=== PATIENT | female | born 1990 | race Caucasian/White ===

== ENCOUNTER 2020-09-11 17:38 | Emergency (ER) | payer OTHER, SELFPAY ==
--- NOTE | 2020-09-11 17:56 | ED.URI ---
HPI - URI/Sore Throat General Chief Complaint: Upper Respiratory Infection Stated Complaint: Ear Pain,UTI Time Seen by Provider: 09/11/20 17:56 Source: patient and RN notes reviewed Mode of arrival: ambulatory Limitations: no limitations History of Present Illness HPI Narrative: 30-year-old female presents to [facility] care with multiple complaints. reports fevers, extreme fatigue, body aches, lower abdominal cramping, urinary symptoms, is of loss of taste and smell.. Not able to eat or drink. History of IV drug use, methamphetamine and fentanyl, last use was this morning Patient also is complaining of urinary frequency urgency with occasional burning and suprapubic cramping that has been intermittent. Would like to be tested for UTI. Denies STD or Related Data Allergies Allergy/AdvReac Type Severity Reaction Status Date / Time sulfamethoxazole Allergy Unknown Difficulty Verified 09/11/20 18:14 Breathing trimethoprim Allergy Unknown Difficulty Verified 09/11/20 18:14 Breathing Review of Systems Review of Systems: Narrative: CONSTITUTIONAL: Reports fever, chills, or sweats. EYES: Denies visual changes, redness, or discharge. ENT: Reports rhinorrhea, congestion, sore throat, or otalgia. CARDIOVASCULAR: Denies chest pain, palpitations, or edema. RESPIRATORY: Reports cough, denies dyspnea. GASTROINTESTINAL: Denies abdominal pain, nausea, vomiting, or diarrhea. GENITOURINARY: Reports dysuria, denies hematuria. SKIN: Denies rash or itching. MUSCULOSKELETAL: Denies back pain, joint pain, or myalgia. NEUROLOGIC: Reports headache, numbness, or weakness. PSYCHIATRIC: Denies anxiety or depression. All other systems reviewed are negative, except as documented in HPI. [facility] Social History Social History (Updated 09/12/20 @ 14:09 by Qian Wren) Substance use: current Substance use type: amphetamines, opiates, IV drugs and methamphetamine Last use: 09/11/20 Comments At the time of my signature, I reviewed and agree with the nursing past medical, surgical, social, and family history. There is no relevant family history pertinent to the patient complaint. Exam Narrative: Exam Narrative: GENERAL: This is a well-developed patient. Appears acutely ill, thin in appearance. HEAD: normocephalic, atraumatic. EYES: PERRL. Sclera clear/white. Vision is grossly intact. EARS: External ears normal, auditory canals clear and without drainage, TMs normal without perforation. Hearing grossly intact. NOSE: External nose normal. Thick white nasal discharge, nares with redness, + rhinorrhea. THROAT: Mucous membranes moist, posterior pharynx clear. NECK: Neck supple, non-tender without lymphadenopathy, masses or thyromegaly. CARDIOVASCULAR: Tachycardic with regular rhythm without murmurs, gallops, or rubs. RESPIRATORY: Clear to auscultation. Breath sounds equal bilaterally. No wheezes, rales, or rhonchi. GASTROINTESTINAL: Abdomen soft, non-tender, nondistended. SKIN: warm, intact with no suspicious lesions or rash, good texture and turgor. NEURO: awake, alert, and oriented to person, place and time. There were no obvious focal neurologic abnormalities. EXTREMITIES: No clubbing, cyanosis, or edema. No joint tenderness, effusion, or edema noted. BACK: Nontender without deformity or crepitance. No flank tenderness. Course Vital Signs Vital signs: Vital Signs Temperature 96.3 F L 09/11/20 18:05 Pulse Rate 121 H 09/11/20 18:05 Respiratory Rate 18 09/11/20 18:05 Blood Pressure 156/114 H 09/11/20 18:05 Pulse Oximetry 100 09/11/20 18:05 Temperature 96.3 F L 09/11/20 18:05 Pulse Rate 110 H 09/11/20 18:52 Respiratory Rate 16 09/11/20 18:52 Blood Pressure 135/98 H 09/11/20 18:52 Pulse Oximetry 100 09/11/20 18:52 Reviewed. Pulse is elevated, elevated blood pressure. Patient is positive Covid. Discussed signs and symptoms with patient that if she feels worse to go to the emergency room which she verbal
[2020-09-11 18:05] VITALS: BP 156/114; PULSE 121; RESP 18; TEMP 35.7; O2SAT 100
[2020-09-11 18:52] VITALS: BP 135/98; PULSE 110; RESP 16; O2SAT 100
== END 2020-09-11 18:52 | disposition home or self-care (01) ==
PROVIDERS: Emergency Provider Nurse Practitioner
DX: U07.1 COVID-19 (principal); N39.0 Urinary tract infection, site not specified
CPT/HCPCS: 81003; 87086; 87426; 99213; C9803; G0463

== ENCOUNTER 2021-10-21 20:14 | Emergency (ER) | payer OTHER, SELFPAY ==
--- NOTE | ~2021-10-21 | XR_ITS ---
EXAMINATION: [id number] DATE: 10/21/2021 21:00 INDICATION: Right axillary pain post fall TECHNIQUE: PA view of the chest and 3 views of the left ribs and 3 views of the right ribs were obtai brigitte. COMPARISON: Chest radiograph dated 11/29/2016 FINDINGS: Displaced fractures of the anterolateral right fifth-eighth ribs. No left-sided rib fractures. Subtle opacity in the central left lower lung zone on the PA projection without evident correlate on the 2 views of the left ribs suggesting this likely represents glandular breast tissue rather than lung dis ease. No other airspace opacities, pulmonary edema, pleural effusion or pneumothorax. Cardiomediastin al silhouette is normal. Mild lumbar levocurvature. IMPRESSION: 1. Displaced right fifth-eighth rib fractures without pneumothorax. 2. Opacities in the left lower lung zone evident only on the PA projection and favor shadowing breast tissue rather than lung disease, differential for the latter including pneumonia or atelectasis. Reviewed, dictated and finalized at location A. VITIES COUNSELOR IMPRESSION: 1. Displaced right fifth-eighth rib fractures without pneumothorax. 2. Opacities in the left lower lung zone evident only on the PA projection and favor shadowing breast tissue rather than lung disease, differential for the la tter including pneumonia or atelectasis.
[2021-10-21 20:15] VITALS: BP 138/90; PULSE 104; RESP 12; TEMP 37.1; O2SAT 100
[2021-10-21 20:38] VITALS: RESP 20
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
[2021-10-21] MEDS: cefTRIAXone 1 GM VIAL 0.5 GM IM (21:30)
[2021-10-21] MEDS: DOXYCYCLINE HYCLATE 100 MG TABLET PO (21:31)
[2021-10-21] MEDS: LIDOCAINE HCL 1% LOCAL INJ 20 ML VIAL (21:31)
[2021-10-21 22:39] LABS: Add Urine Microscopic? YES; Appearance Urine Clear (Clear); Bacteria Urine Trace /hpf; Bilirubin Urine 1+ (Negative); Blood Urine 2+ (Negative); Color Urine Yellow (Yellow); Glucose Urine UA Negative (Negative); Ketones Urine Negative (Negative); Leukocyte Esterase Ur Negative LEU/UL (Negative); Mucus Urine Rare /lpf; Nitrate Urine Negative (Negative); Protein Urine 2+ mg/dL (Negative); RBC Urine >75 /hpf (0-2); Specific Grav Ur 1.028 (1.001-1.035); Squamous Epithelial Cell Urine Occasional /hpf (Few); WBC Urine 0-3 /hpf
[2021-10-21 23:51] VITALS: BP 140/91; PULSE 100; RESP 18; O2SAT 98
== END 2021-10-21 23:53 | disposition home or self-care (01) ==
PROVIDERS: Emergency Provider Nurse Practitioner Family
DX: S22.41XA Multiple fractures of ribs, right side, initial encounter for closed fracture (principal); W03.XXXA Other fall on same level due to collision with another person, initial encounter
CPT/HCPCS: 71111; 81001; 87491; 87591; 96372; 99284; A9270; J0696

== ENCOUNTER 2022-10-16 14:08 | Emergency (ER) | payer OTHER, SELFPAY ==
[2022-10-16 14:22] VITALS: BP 142/80; PULSE 100; RESP 18; TEMP 36.4; O2SAT 100
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
== END 2022-10-16 15:35 | disposition left against medical advice (07) ==
LOC: ANHED 15:51
DX: N39.0 Urinary tract infection, site not specified (principal)
CPT/HCPCS: 99199

== ENCOUNTER 2022-10-18 10:03 | Emergency (ER) | payer OTHER, SELFPAY ==
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
--- NOTE | ~2022-10-18 | US_ITS ---
EXAMINATION: US OB <=14 wk fetus w TV DATE: 10/18/2022 12:56 INDICATION: Positive test. Vomiting. TECHNIQUE: Real-time transabdominal and transvaginal pelvic ultrasound was performed. COMPARISON: None. FINDINGS: TRANSABDOMINAL ULTRASOUND: The uterus measures 10.2 x 4.9 x 5.1 cm. TRANSVAGINAL ULTRASOUND: The endometrial complex measures 12 mm in thickness. There is no visible int rauterine gestational sac. The right ovary measures 3.6 x 2.1 x 2.8 cm. The left ovary measures 2.1 x 1.9 x 2.9 cm. There is no free fluid in the pelvis. IMPRESSION: 1. No visible intrauterine gestational sac, which may be normal in early . Spontaneous abor tion and ectopic are not excluded. Serial beta hCGs are recommended. Reviewed, dictated and finalized at location A. RNET WEBMASTER IMPRESSION: 1. No visible intrauterine gestational sac, which may be normal in early pregn ayesha. Spontaneous and ectopic are not excluded. Serial beta hCGs are recommended.
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
--- NOTE | ~2022-10-18 | CT_ITS ---
EXAMINATION: CT facial bones wo con DATE: 10/18/2022 10:37 INDICATION: Injury TECHNIQUE: Computed tomography (CT) of the facial bones and maxillofacial region was performed withou t intravenous contrast. Automated exposure control and iterative reconstruction technique were employ ed. Exam dose: 357.51 mGy-cm total exam DLP. COMPARISON: None. FINDINGS: The nasal bones and anterior maxillary spine are intact without fracture. The frontozygomatic sutures, orbital rims and meza, zygomatic arches and maxillary bones are intact. The pterygoid plates are normal. There is leftward bowing of nasal septum. There is sondra bullosa of the right middle nasal turbinate and soft tissue swelling of the nasal turbinates bilaterally. Normal alignment at the temporomandibular joints. No mandible fracture. There is mild left and minimal right maxillary sinus mucoperiosteal thickening and slight focal soft tissue thickening of the ethmoid air cells. The paranasal sinuses and mastoid air cells are otherwise unremarkable. IMPRESSION: No facial fracture is detected Reviewed, dictated and finalized at Location A. Reviewed, dictated and finalized at location L. NER MACHINE TENDER
--- NOTE | ~2022-10-18 | CT_ITS ---
. EXAMINATION: CT brain wo con DATE: 10/18/2022 10:37 INDICATION: Head injury TECHNIQUE: Computed tomography (CT) of the head was performed without intravenous contrast. The mA wa s adjusted according to patient size. Iterative reconstruction technique was employed. Exam dose: 60 5.33 mGy-cm total exam DLP. COMPARISON: None FINDINGS: No intracranial mass lesion or hemorrhage or cerebrovascular accident. No midline shift or mass effect. Normal jones-white matter differentiation. Normal ventricular size. No subdural or epidur al hematoma. Orbital contents are unremarkable. Minimal focal soft tissue thickening in the anterior ethmoid air cells, left greater than right. The paranasal sinuses and mastoid air cells are otherwise unremarkable. No fracture or bone destruction of the cranial vault. IMPRESSION: No skull fracture or significant intracranial abnormality Reviewed, dictated and finalized at Location [facility]. Reviewed, dictated and finalized at location L. LITY MECHANIC
[2022-10-18 10:09] VITALS: BP 140/92; PULSE 124; RESP 16; TEMP 36.7; O2SAT 100
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
--- NOTE | 2022-10-18 11:07 | PC.NURSE ---
R/p urine POC test negative x2. Peyton VERA notified. blood HCG quant ordered
[2022-10-18] MEDS: SODIUM CHLORIDE 0.9% IV 1,000 ML 999 ML IV CONT (11:21)
[2022-10-18] MEDS: ONDANSETRON INJ 4 MG/2 ML VIAL IV PUSH (11:22)
[2022-10-18 11:30] LABS: Basophils Absolute Auto 0.1 K/mm3 (0.0-0.1); Basophils Percent Auto 0.7 % (0.2-1.2); Eosinophils Absolute Auto 0.3 K/mm3 (0-0.3); Eosinophils Percent Auto 3.6 % (0-4.4); Hematocrit 35.6 % (37.0-47.0); Hemoglobin 11.7 g/dL (12.0-15.0); Immature Granulocyte Absolute 0.03 K/mm3 (0.00-0.031); Immature Granulocyte Percent A 0.3 % (0-0.5); Lymphocytes Absolute Auto 3.74 K/mm3 (0.9-3.2); Lymphocytes Percent Auto 39.2 % (18.3-44.2); Mean Corpuscular HGB Conc 32.9 g/dl (32-36); Mean Corpuscular Volume 91.3 fl (80-100); Monocytes Absolute Auto 1.2 K/mm3 (0.1-0.6); Monocytes Percent Auto 12.9 % (2.6-8.5); Neutrophils Absolute Auto 4.1 K/mm3 (1.3-6.7); Neutrophils Percent Auto 43.3 % (45.5-73.1); Platelet Count Result 346 k/mm3 (150-375); Red Cell Distribution Width 12.5 % (11.5-14.5); White Blood Count 9.6 K/mm3 (4.5-10.0)
[2022-10-18 11:39] LABS: Alanine Aminotransferase 30 U/L (6-35); Albumin Level 4.1 g/dL (3.5-5.1); Alkaline Phosphatase 56 U/L (38-126); Anion Gap 3 mmol/L (8-16); Aspartate Amino Transferase 29 U/L (14-36); Bilirubin,Total 0.5 mg/dL (0.2-1.3); Blood Urea Nitrogen 13 mg/dL (7-17); Calcium 9.1 mg/dL (8.4-10.2); Carbon Dioxide 30 mmol/L (22-30); Chloride 100 mmol/L (98-107); Estimated CRCL calculation 91 ml/min; Estimated Glomerular Filt Rate > 60; Glucose 92 mg/dL (65-110); Lipase 67 U/L (23-300); Potassium 3.6 mmol/L (3.4-5.0); Sodium 133 mmol/L (137-145)
[2022-10-18 11:42] LABS: Appearance Urine Cloudy (Clear); Bacteria Urine 1+ /hpf; Bilirubin Urine Negative (Negative); Blood Urine Negative (Negative); Calcium Oxalate Crystals Urine Present /hpf; Color Urine Dark Yellow (Yellow); Glucose Urine UA Negative (Negative); Ketones Urine Trace mg/dL (Negative); Leukocyte Esterase Ur Negative LEU/UL (Negative); Need Manual Microscopic Reviewed; Nitrate Urine Negative (Negative); Non Pathogenic Casts 0-2; Protein Urine Trace mg/dL (Negative); Squamous Epithelial Cell Urine Occasional /hpf (Few); WBC Urine 0-5 /hpf; pH Urine 5.5 (5.0-9.0)
[2022-10-18 11:44] LABS: Add Urine Microscopic? YES
[2022-10-18 11:55] LABS: Beta HCG Quantitative 27.55 mIU/ML
[2022-10-18 12:53] VITALS: BP 136/86; PULSE 95; RESP 18; O2SAT 100
[2022-10-18 14:02] VITALS: BP 130/80; PULSE 90; RESP 18; O2SAT 98
== END 2022-10-18 14:03 | disposition home or self-care (01) ==
PROVIDERS: Emergency Medicine; Emergency Provider Physician Assistant
DX: O9A.211 Injury, poisoning and certain other consequences of external causes complicating pregnancy, first trimester (principal); S80.11XA Contusion of right lower leg, initial encounter; S09.90XA Unspecified injury of head, initial encounter; Y04.2XXA Assault by strike against or bumped into by another person, initial encounter; Y08.02XA Assault by strike by baseball bat, initial encounter; Z3A.00 Weeks of gestation of pregnancy not specified
CPT/HCPCS: 36415; 70450; 70486; 73590; 73630; 76801; 76817; 80053; 81001; 81025; 83690; 84702; 85025; 87070; 87147; 87491; 87591; 87808; 96361; 96374; 96375; 99284; J0131; J2405; J7030

== ENCOUNTER 2022-11-26 22:56 | Emergency (ER) | payer OTHER, SELFPAY ==
--- NOTE | ~2022-11-26 | CT_ITS ---
EXAMINATION: CT brain wo con INDICATION: Headache COMPARISON: 10/18/2022 TECHNIQUE: Standard unenhanced head CT. The dose-length product (DLP) was 605.33 mGy-cm. The mA was a djusted according to patient size. Iterative reconstruction technique was employed. FINDINGS: There is no intracranial hemorrhage, acute infarction, or abnormal mass lesion. The ventric les are normal. There is no abnormal mass effect or midline shift. The jones-white matter differentiat ion is normal. The basal cisterns are patent. The orbits are normal. The paranasal sinuses, mastoids and calvarium are normal. IMPRESSION: 1. No acute intracranial abnormality. Reviewed, dictated and finalized at location A.
[2022-11-26 22:59] VITALS: BP 162/104; PULSE 104; RESP 18; TEMP 36.5; O2SAT 100
--- NOTE | 2022-11-26 23:26 | PC.NURSE ---
This RN attempted IV x2, pt is a current IV drug user and a hard stick. 2nd RN to try.
[2022-11-26] MEDS: diphenhydrAMINE HCl INJ 50 MG/ML VIAL IV PUSH (23:54)
[2022-11-26] MEDS: SODIUM CHLORIDE 0.9% IV 1,000 ML 999 ML IV CONT (23:54)
[2022-11-26] MEDS: METOCLOPRAMIDE HCL INJ 10 MG/2 ML VIAL IV PUSH (23:54)
--- NOTE | 2022-11-27 00:01 | ECG_ITS ---
Measurements Intervals Eastern Rate: 77 P: 64 NJ: 182 QRS: 7 QRSD: 104 T: 57 QT: 432 QTc: 489 Interpretive Statements SINUS RHYTHM INCOMPLETE RIGHT BUNDLE BRANCH BLOCK [90+ ms QRS DURATION, TERMINAL R IN V1/V2, 40+ ms S IN I/aVL/V4/V5/V6] NO PREVIOUS ECG AVAILABLE FOR COMPARISON Electronically Signed On 11-27-2022 18:52:26 CDT by Sheila Duenas M.D.
[2022-11-27 00:07] LABS: Basophils Absolute Auto 0.1 K/mm3 (0.0-0.1); Basophils Percent Auto 0.6 % (0.2-1.2); Eosinophils Absolute Auto 0.3 K/mm3 (0-0.3); Hematocrit 43.8 % (37.0-47.0); Hemoglobin 14.8 g/dL (12.0-15.0); Immature Granulocyte Absolute 0.01 K/mm3 (0.00-0.031); Immature Granulocyte Percent A 0.1 % (0-0.5); Lymphocytes Percent Auto 34.1 % (18.3-44.2); Mean Corpuscular HGB Conc 33.8 g/dl (32-36); Mean Corpuscular Hemoglobin 30.8 pg (26-34); Mean Corpuscular Volume 91.3 fl (80-100); Mean Platelet Volume 9.3 fl (7.4-10.4); Monocytes Absolute Auto 0.8 K/mm3 (0.1-0.6); Monocytes Percent Auto 8.9 % (2.6-8.5); Neutrophils Absolute Auto 4.9 K/mm3 (1.3-6.7); Neutrophils Percent Auto 53.3 % (45.5-73.1); Platelet Count Result 313 k/mm3 (150-375); Red Cell Distribution Width 12.7 % (11.5-14.5); White Blood Count 9.1 K/mm3 (4.5-10.0)
[2022-11-27 00:35] LABS: Alanine Aminotransferase 33 U/L (6-35); Albumin Level 4.3 g/dL (3.5-5.1); Alkaline Phosphatase 51 U/L (38-126); Anion Gap 6 mmol/L (8-16); Aspartate Amino Transferase 39 U/L (14-36); Bilirubin,Total 0.7 mg/dL (0.2-1.3); Blood Urea Nitrogen 10 mg/dL (7-17); Calcium 8.9 mg/dL (8.4-10.2); Carbon Dioxide 31 mmol/L (22-30); Chloride 101 mmol/L (98-107); Estimated CRCL calculation 91 ml/min; Estimated Glomerular Filt Rate > 60; Glucose 112 mg/dL (65-110); Potassium 4.5 mmol/L (3.4-5.0); Sodium 138 mmol/L (137-145)
[2022-11-27 00:40] VITALS: BP 131/93; PULSE 85; RESP 16; O2SAT 100
[2022-11-27 00:59] LABS: Beta HCG Quantitative < 2.39 mIU/ML
[2022-11-27 01:03] LABS: Appearance Urine Cloudy (Clear); Bacteria Urine None Seen /hpf; Bilirubin Urine Negative (Negative); Blood Urine Negative (Negative); Color Urine Yellow (Yellow); Glucose Urine UA Negative (Negative); Ketones Urine Negative (Negative); Leukocyte Esterase Ur 1+ LEU/UL (Negative); Nitrate Urine Negative (Negative); Non Pathogenic Casts 0-2; Protein Urine Negative (Negative); RBC Urine 0-2 /hpf (0-2); Specific Grav Ur 1.007 (1.001-1.035); Squamous Epithelial Cell Urine Moderate /hpf (Few); Urobilinogen Urine 0.2 mg/dL (<2.0); pH Urine 8.5 (5.0-9.0)
[2022-11-27 01:09] LABS: Add Urine Microscopic? YES
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
[2022-11-27 01:35] VITALS: PULSE 90; RESP 17; O2SAT 100
== END 2022-11-27 01:36 | disposition home or self-care (01) ==
PROVIDERS: Emergency Provider Emergency Medicine
DX: R51.9 Headache, unspecified (principal); I45.10 Unspecified right bundle-branch block
CPT/HCPCS: 36415; 70450; 80053; 81001; 83735; 84702; 85025; 87086; 93005; 96360; 96361; 96374; 96375; 99284; J1200; J2765; J7030

== ENCOUNTER 2023-10-31 20:09 | Emergency (ER) | payer OTHER, SELFPAY ==
[2023-10-31] VITALS (19 sets, daily range): BP systolic 107–125; BP diastolic 55–92; PULSE 90–125; RESP 9–30; TEMP 36.4; O2SAT 100
--- NOTE | ~2023-10-31 | US_ITS ---
EXAMINATION: US pelvic limited INDICATION: 7 days evaluate for retained products TECHNIQUE: Limited sonography of the pelvis was performed by transabdominal technique. COMPARISON: CT abdomen pelvis 09/16/2015. RESULT: Uterus: 11.9 x 9.2 x 10.5 cm. Retroverted. The endometrial cavity is dilated by heterogeneous materia l, small portions of which contain minimal vascular flow, less than the adjacent myometrium. No signi ficant dirty shadowing to suggest the presence of endometrial gas. IMPRESSION: Sonographic findings suspicious for small foci of retained products of conception, with endometrial c lot. Reviewed, dictated and finalized at location K. IMPRESSION: Sonographic findings suspicious for small foci of retained products of concepti on, with endometrial clot.
[2023-10-31 20:33] LABS: Basophils Absolute Auto 0.1 K/mm3 (0.0-0.1); Basophils Percent Auto 0.6 % (0.2-1.2); Eosinophils Absolute Auto 0.6 K/mm3 (0-0.3); Eosinophils Percent Auto 4.8 % (0-4.4); Immature Granulocyte Absolute 0.04 K/mm3 (0.00-0.031); Immature Granulocyte Percent A 0.3 % (0-0.5); Lymphocytes Absolute Auto 3.19 K/mm3 (0.9-3.2); Lymphocytes Percent Auto 25.1 % (18.3-44.2); Mean Corpuscular HGB Conc 31.3 g/dl (32-36); Mean Corpuscular Hemoglobin 26.5 pg (26-34); Mean Corpuscular Volume 84.7 fl (80-100); Mean Platelet Volume 8.5 fl (7.4-10.4); Monocytes Absolute Auto 0.9 K/mm3 (0.1-0.6); Monocytes Percent Auto 6.7 % (2.6-8.5); Neutrophils Absolute Auto 7.9 K/mm3 (1.3-6.7); Neutrophils Percent Auto 62.5 % (45.5-73.1); Platelet Count Result 531 k/mm3 (150-375); Red Blood Count 3.78 M/mm3 (4.2-5.4); Red Cell Distribution Width 13.6 % (11.5-14.5); White Blood Count 12.7 K/mm3 (4.5-10.0)
[2023-10-31 20:43] LABS: Alanine Aminotransferase 17 U/L (6-35); Alkaline Phosphatase 84 U/L (38-126); Anion Gap 5 mmol/L (8-16); Aspartate Amino Transferase 27 U/L (14-36); Bilirubin,Total 0.5 mg/dL (0.2-1.3); Blood Urea Nitrogen 15 mg/dL (7-17); Calcium 9.8 mg/dL (8.4-10.2); Carbon Dioxide 29 mmol/L (22-30); Chloride 104 mmol/L (98-107); Estimated CRCL calculation 65 ml/min; Estimated Glomerular Filt Rate > 60; Glucose 128 mg/dL (65-110); Potassium 3.5 mmol/L (3.4-5.0); Sodium 138 mmol/L (137-145)
[2023-10-31 20:46] LABS: Prothrombin Time 13.6 Seconds (11.1-14.7)
[2023-10-31 20:47] LABS: Partial Thromboplastin Time 29.2 Seconds (22.3-36.8)
--- NOTE | 2023-10-31 21:00 | PC.NURSE ---
EDP Dr. Jain made aware of pt in room.
--- NOTE | 2023-10-31 21:01 | PC.NURSE ---
Pt states she is IV drug user. 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
[2023-10-31] MEDS: METOCLOPRAMIDE HCL INJ 10 MG/2 ML VIAL IV PUSH (21:28)
[2023-10-31] MEDS: SODIUM CHLORIDE 0.9% IV 1,000 ML 999 ML IV CONT (21:28)
[2023-10-31] MEDS: diphenhydrAMINE HCl INJ 50 MG/ML VIAL IV PUSH (21:28)
--- NOTE | 2023-10-31 22:14 | ED.GENADULT ---
HPI - General Adult General Chief complaint: Vaginal Bleeding Stated complaint: vaginal bleeding, 6 days Time Seen by Provider: 10/31/23 20:57 History of Present Illness HPI narrative: The patient is a 33-year-old female who presents emergency department chief complaint of vaginal bleeding patient is 7 days reports that she started passing some clots today. The patient reports he has felt a little lightheaded patient reports no syncope. Related Data Allergies Allergy/AdvReac Type Severity Reaction Status Date / Time sulfamethoxazole Allergy Unknown Difficulty Verified 10/31/23 20:15 Breathing trimethoprim Allergy Unknown Difficulty Verified 10/31/23 20:15 Breathing Review of Systems Review of Systems: A 10 system review of systems was completed on the patient and is negative except for what is stated in the HPI. Nursing and ancillary documentation was reviewed. PMFSH Past Medical History Medical History No active medical problems Social History Social History Substance use: current Substance use type: amphetamines, opiates, IV drugs and methamphetamine Last use: 09/11/20 Exam Narrative: GENERAL: Well-appearing, well-nourished, and in no acute distress. HEAD: Normocephalic, atraumatic. EYES: PERRLA and EOMI. ENT: Nares clear, no rhinorrhea or epistaxis. Mucous membranes moist. NECK: Supple. CHEST: Clear to auscultation. No respiratory distress. HEART: Regular rate and rhythm. No murmur heard. Normal peripheral pulses. ABDOMEN: Soft, nontender, nondistended, normal active bowel sounds. : Clots in the vault were cleared using Ob swab EXTREMITIES: Normal range of motion. No edema. SKIN: Warm, dry, no rash. NEURO: No focal deficits. Alert and oriented x3. PSYCH: Normal mood and affect. Course Vital Signs Vital signs: Vital Signs Temperature 36.4 C 10/31/23 20:10 Pulse Rate 125 H 10/31/23 20:10 Respiratory Rate 16 10/31/23 20:10 Blood Pressure 125/92 H 10/31/23 20:10 Pulse Oximetry 100 10/31/23 20:10 Oxygen Delivery Room Air 10/31/23 20:10 Temperature 36.4 C 10/31/23 20:10 Pulse Rate 125 H 10/31/23 20:10 Respiratory Rate 16 10/31/23 20:10 Blood Pressure 125/92 H 10/31/23 20:10 Pulse Oximetry 100 10/31/23 20:10 Oxygen Delivery Room Air 10/31/23 20:10 Medical Decision Making MDM Narrative Medical decision making narrative: Differential diagnosis includes retained products, bleeding, Laboratory studies were obtained showed hemoglobin 10.0 electrolytes are within normal limits Pelvic ultrasound showed possible small amount of retained products The case was discussed with OBGYN who reported that the ultrasound would be consistent with standard uterus. They recommended the patient follow-up with her OBGYN Vital Signs Vital Signs: Vital Signs Temperature 36.4 C 10/31/23 20:10 Pulse Rate 125 H 10/31/23 20:10 Respiratory Rate 16 10/31/23 20:10 Blood Pressure 125/92 H 10/31/23 20:10 Pulse Oximetry 100 10/31/23 20:10 Oxygen Delivery Room Air 10/31/23 20:10 Temperature 36.4 C 10/31/23 20:10 Pulse Rate 125 H 10/31/23 20:10 Respiratory Rate 16 10/31/23 20:10 Blood Pressure 125/92 H 10/31/23 20:10 Pulse Oximetry 100 10/31/23 20:10 Oxygen Delivery Room Air 10/31/23 20:10 Lab Data 10/31/23 20:27 10/31/23 20:27 Labs: Lab Results 10/31/23 10/31/23 Range/Units 20:27 20:44 WBC 12.7 H (4.5-10.0) K/mm3 RBC 3.78 L (4.2-5.4) M/mm3 Hgb 10.0 L D (12.0-15.0) g/dL Hct 32.0 L (37.0-47.0) % MCV 84.7 (80-100) fl MCH 26.5 (26-34) pg MCHC 31.3 L (32-36) g/dl RDW 13.6 (11.5-14.5) % Plt Count 531 H D (150-375) k/mm3 MPV 8.5 (7.4-10.4) fl Immature Gran % (Auto) 0
--- NOTE | 2023-10-31 22:44 | PC.NURSE ---
IV removed. patient's friend assisted patient getting dressed. advised to call when ready to discharge.
== END 2023-10-31 22:49 | disposition home or self-care (01) ==
LOC: ANHED 22:27
PROVIDERS: Emergency Provider Emergency Medicine
DX: O72.2 Delayed and secondary postpartum hemorrhage (principal)
CPT/HCPCS: 36415; 76857; 80053; 85025; 85610; 85730; 86850; 86880; 86900; 86901; 96361; 96374; 96375; 99284; J1200; J2765; J7030

== ENCOUNTER 2024-11-04 22:16 | Emergency (ER) | payer OTHER, SELFPAY ==
--- NOTE | ~2024-11-04 | XR_ITS ---
EXAMINATION: XR chest 1V portable Exam Date/Time: 11/04/2024 22:34 CDT HISTORY: hanging Comparison: 11/29/2016. RESULT: Lines, tubes, and devices: None. Lungs and pleura: Clear. Cardiomediastinal silhouette: Stable. Other: No acute osseous or upper abdominal finding. Increased soft tissue density in the right lower neck. IMPRESSION: No acute cardiopulmonary process. Question of soft tissue swelling in the right lower neck. Reviewed, dictated and finalized at location K.
--- NOTE | ~2024-11-04 | CT_ITS ---
EXAMINATION: CTA brain carotid DATE: 11/04/2024 23:24 INDICATION: hanging TECHNIQUE: Computed tomographic angiography (CTA) of the head was performed without and with 100 mL O mnipaque-350 intravenous contrast. CTA of the neck was performed with intravenous contrast. Automated exposure control and iterative reconstruction technique were employed. The dose-length product was 1 861.87 mGy-cm. Maximum intensity projection and volume rendered 3D-reconstructions were created by kalen kendall technologist on a separate workstation. COMPARISON: CT brain 11/26/2022. FINDINGS: CT BRAIN: No acute large vessel infarct, intracranial hemorrhage, mass, or hydrocephalus. Aerated secretions in the posterior ethmoid air cells and left sphenoid sinus CTA HEAD: There is significant venous contamination. No large vessel occlusion, aneurysm, high flow vascular ma lformation, nidus or extravasation. Patent cerebral veins. Symmetric parenchymal enhancement. CTA NECK: There is significant venous contamination. Aortic arch and proximal great vessels: Normal arch anatomy. Atherosclerotic calcifications at the vi sualized aortic arch and proximal great vessels. Right common carotid, carotid bifurcation, and internal carotid artery: No plaque.There is 0% stenosi s of the proximal right internal carotid artery relative to normal distal artery lumen diameter (NASC ET criteria). Left common carotid, carotid bifurcation, and internal carotid artery: No plaque.There is 0% stenosis of the proximal left internal carotid artery relative to normal distal artery lumen diameter (NASCET criteria). Vertebral arteries: Focal dilation of the distal left vertebral artery at the level of C1 (V3 segment ) up to 7 mm, involving a 12 mm long segment of the artery. No intimal flap or intraluminal thrombus identified. No significant plaque or stenosis. Left vertebral artery is dominant. Other findings: Dental caries and periodontal disease. Hyoid bone and thyroid cartilage appear to be intact. Mild anterior cervical chain lymphadenopathy. IMPRESSION: No acute intracranial process. No large vessel intracranial occlusion, high-grade intracranial stenosis, or aneurysm. 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 No carotid or vertebral artery occlusion, dissection, or significant stenosis. Aerated secretions in the posterior ethmoid sinuses and left sphenoid sinus, may represent sinusitis or mucosal hemorrhage in the setting of trauma. Results reported telephonically to Dr. Leonard by Dr. Costa at 11:53 PM on 11/04/2024. Reviewed, dictated and finalized at location K. IMPRESSION: No acute intracranial process. No large vessel intracranial occlusion, high-grade intracranial stenosis, or an eurysm. 7 x 12 mm suspected traumatic pseudoaneurysm of the V3 segment of the left vert ebral artery. No carotid or vertebral artery occlusion, dissection, or significant stenosis. Aerated secretions in the posterior ethmoid sinuses and left sphenoid sinus, ma y represent sinusitis or mucosal hemorrhage in the setting of trauma. Results reported telephonically to Dr. Leonard by Dr. Costa at 11:53 PM on 10/13.
[2024-11-04 22:11] VITALS: BP 141/90; PULSE 87; RESP 12; TEMP 36.4; O2SAT 100
--- NOTE | 2024-11-04 22:22 | ECG_ITS ---
Test Date: 2024-11-04 22:20:42 Measurements Intervals Freedom Rate: 98 P: 72 CO: 163 QRS: 31 QRSD: 99 T: 71 QT: 361 QTc: 463 Interpretive Statements SINUS RHYTHM No previous ECG available for comparison Electronically Signed On 11-05-2024 16:04:07 CDT by Catie Mtz M.D.
[2024-11-04 22:24] VITALS: PULSE 99
--- OUTSIDE RECORDS SUMMARY | 2024-11-04 22:31 | XMS_ITS | CONTINUITY OF CARE DOCUMENT ---
Author Name lexi elliott Address Unknown Organization [facility] Office Address [address] [place] [address] Phone [phone] Care Team Providers Care Training Developer Name Role Phone Jerson YOUNGER, Eriberto Unavailable [phone] Eriberto Arthur MD Unavailable [phone] INSURANCE PROVIDERS Payer name Policy type / Coverage type [place] [employer] [place] party [place] [employer] Medicaid [id number]
[2024-11-04 22:39] VITALS: RESP 17; O2SAT 100
[2024-11-04 22:43] LABS: Basophils Absolute Auto 0.1 K/mm3 (0.0-0.1); Basophils Percent Auto 0.5 % (0.2-1.2); Eosinophils Absolute Auto 0.4 K/mm3 (0-0.3); Eosinophils Percent Auto 4.6 % (0-4.4); Hematocrit 45.3 % (37.0-47.0); Hemoglobin 14.3 g/dL (12.0-15.0); Immature Granulocyte Absolute 0.02 K/mm3 (0.00-0.031); Immature Granulocyte Percent A 0.2 % (0-0.5); Lymphocytes Absolute Auto 4.37 K/mm3 (0.9-3.2); Lymphocytes Percent Auto 47.7 % (18.3-44.2); Mean Corpuscular HGB Conc 31.6 g/dl (32-36); Mean Corpuscular Hemoglobin 25.1 pg (26-34); Mean Corpuscular Volume 79.6 fl (80-100); Mean Platelet Volume 9.4 fl (7.4-10.4); Monocytes Absolute Auto 0.5 K/mm3 (0.1-0.6); Monocytes Percent Auto 5.1 % (2.6-8.5); Neutrophils Absolute Auto 3.8 K/mm3 (1.3-6.7); Neutrophils Percent Auto 41.9 % (45.5-73.1); Platelet Count Result 354 k/mm3 (150-375); Red Blood Count 5.69 M/mm3 (4.2-5.4); Red Cell Distribution Width 15.9 % (11.5-14.5); White Blood Count 9.2 K/mm3 (4.5-10.0)
--- NOTE | 2024-11-04 22:43 | PC.NURSE ---
Patient sternal rubbed by this RN, sat straight up in bed yelling where am I at, why am I here? Began trying to get out of bed. Restrained by police and placed in cuffs to the bed.
[2024-11-04 22:45] LABS: Add Urine Microscopic? NO; Appearance Urine Clear (Clear); Bilirubin Urine Negative (Negative); Blood Urine Negative (Negative); Color Urine Yellow (Yellow); Glucose Urine UA Negative (Negative); Ketones Urine Negative (Negative); Leukocyte Esterase Ur Negative LEU/UL (Negative); Nitrate Urine Negative (Negative); Protein Urine Negative (Negative); Specific Grav Ur 1.009 (1.001-1.035); Urobilinogen Urine 0.2 mg/dL (<2.0); pH Urine 6.5 (5.0-9.0)
[2024-11-04 22:51] LABS: Ethanol < 10 mg/dL (<10)
[2024-11-04 22:53] LABS: INR 0.9; Prothrombin Time 12.7 Seconds (11.1-14.7)
[2024-11-04 22:54] LABS: Alanine Aminotransferase 44 U/L (6-35); Albumin Level 5.1 g/dL (3.5-5.1); Alkaline Phosphatase 58 U/L (38-126); Anion Gap 16 mmol/L (4-12); Aspartate Amino Transferase 36 U/L (14-36); Bilirubin,Total 0.5 mg/dL (0.2-1.3); Blood Urea Nitrogen 15 mg/dL (7-17); Calcium 10.1 mg/dL (8.4-10.2); Carbon Dioxide 22 mmol/L (22-30); Chloride 104 mmol/L (98-107); Estimated Glomerular Filt Rate 59; Glucose 103 mg/dL (65-110); Partial Thromboplastin Time 26.3 Seconds (22.3-36.8); Potassium 4.5 mmol/L (3.4-5.0); Sodium 142 mmol/L (137-145)
[2024-11-04 23:02] LABS: Amphetamine Screen Urine Negative (Negative); Barbiturate Screen Urine Negative (Negative); Benzodiazepines Screen Urine Positive (Negative); Cannabinoid Screen Urine Negative (Negative); Cocaine Screen Urine Negative (Negative); Methadone Screen Urine Negative (Negative); Opiate Screen Urine Negative (Negative); Phencyclidine Screen Urine Negative (Negative)
[2024-11-04 23:30] VITALS: BP 149/110; PULSE 90; RESP 11; O2SAT 100
[2024-11-04 23:32] VITALS: BP 149/110; PULSE 83; RESP 21; O2SAT 100
--- NOTE | 2024-11-05 00:03 | ED.GENADULT ---
HPI - General Adult General Chief complaint: Unspecified Stated complaint: hanging Time Seen by Provider: 11/04/24 22:16 History of Present Illness HPI narrative: Patient is a 34-year-old female who presents ER from the care home after reports of attempted hanging. It is reported the they do not think that she was suspended however she was not responsive when EMS arrived and they placed a left tibial IO without her moving. Since then she has responded to noxious stimuli. When you open the patient's eyes she looks around the room. Paperwork shows she is incarcerated for methamphetamine use and stealing. It is not reported that she ingesting medication to make herself altered. Patient does awaken to sternal rub for me will not answer questions. She is in a C-collar. Related Data Allergies Allergy/AdvReac Type Severity Reaction Status Date / Time sulfamethoxazole Allergy Unknown Difficulty Verified 10/31/23 20:15 Breathing trimethoprim Allergy Unknown Difficulty Verified 10/31/23 20:15 Breathing Review of Systems Review of Systems: ROS unobtainable: Yes unobtainable due to medical condition [facility] Past Medical History Medical History (Updated 11/05/24 @ 00:38 by Fredy Leonard MD) Hepatitis C Social History Social History Substance use: current Substance use type: amphetamines, opiates, IV drugs and methamphetamine Last use: 09/11/20 Exam Narrative: GENERAL: Well-appearing, well-nourished, and in no acute distress. HEAD: Normocephalic, atraumatic. EYES: PERRL and EOMI. ENT: Mucous membranes moist. NECK: Supple. CHEST: Clear to auscultation. No respiratory distress. HEART: Regular rate and rhythm. Normal peripheral pulses. ABDOMEN: Soft, nontender, nondistended. EXTREMITIES: Normal range of motion. No edema. Left tibial IO SKIN: Warm, dry, no rash. NEURO: Left-sided facial weakness with attempting to smile and closing the left eye/raising left eyebrow. More pronounced in the cheek as opposed to the upper face. Sensation intact. Normal strength in arms and legs. Alert and oriented x3. Course Course Emergency Course: Patient awake alert orient x3. Left-sided facial weakness that patient reports is not chronic. She does reports she tried hanging herself 20 years ago and she was evaluated in hospital in [place] but she does not know which one and she is unsure if she had any vascular injury at that time. She is unaware of having a pseudoaneurysm of the vertebral artery. New left facial weakness. Traumatic damian's palsy vs intracranial injury related to abnormal vessel. Patient remains in police custody. Discussed the need for transfer to higher level of care. Will contact [facility]. [id number]: Accepted by [facility], Dr Patel. Patient aware of dx and tx plan. Still in police custody. Vital Signs Vital signs: Vital Signs Temperature 97.6 F 11/04/24 22:11 Pulse Rate 87 11/04/24 22:11 Respiratory Rate 12 11/04/24 22:11 Blood Pressure 141/90 H 11/04/24 22:11 Pulse Oximetry 100 11/04/24 22:11 Oxygen Delivery Room Air 11/04/24 22:11 Temperature 97.6 F 11/04/24 22:11 Pulse Rate 79 11/05/24 00:28 Respiratory Rate 16 11/05/24 00:28 Blood Pressure 145/87 H 11/05/24 00:28 Pulse Oximetry 100 11/05/24 00:28 Oxygen Delivery Room Air 11/04/24 22:11 Medical Decision Making Vital Signs Vital Signs: Vital Signs Temperature 97.6 F 11/04/24 22:11 Pulse Rate 87 11/04/24 22:11 Respiratory Rate 12 11/04/24 22:11 Blood Pressure 141/90 H 11/04/24 22:11 Pulse Oximetry 100 11/04/24 22:11 Oxygen Delivery Room Air 11/04/24 22:11 Temperature 97.6 F 11/04/24 22:11 Pulse Rate 79 11/05/24 00:28 Respiratory Rate 16 11/05/24 00:28 Blood Pressure 145/87 H 11/05/24 00:28 Pulse Oximetry 100 11/05/24 00:28 Oxygen Delivery Room Air 11/04/24 22:11 Lab Data 11/04/24 22:35 11/04/24 22:35 Labs: Lab Results 11/04/24 11/04/24 Range/Units 22:34 22:35 WBC 9.2 (4.5-10.0) K/mm3 RBC 5.69 H (4.2-5.4) M/mm3 Hgb 14.3 D (12.0-15.0) g/dL Hct 45.3 (37.0-47.0) % MCV 79.6 L (80-100) fl MCH 25.1 L (26-34) pg MCHC 31.6 L (32-36) g/dl RDW 15.9 H (11.5-14.5) % Plt Count 354 (150-375) k/mm3 MPV 9.4 (7.4-10.4) fl Immature Gran % (Auto) 0.2 (0-0.5) % Neut % (Auto) 41.9 L (45.5-73.1) % Lymph % (Auto) 47.7 H (18.3-44.2) % [place] % (Auto) 5.1 (2.6-8.5) % Eos % (Auto) 4.6 H (0-4.4) % Baso % (Auto) 0.5 (0.2-1.2) % Lymph # (Auto) 4.37 H (0.9-3.2) K/mm3 [place] # (Auto) 0.5 (0.1-0.6) K/mm3 Eos # (Auto) 0.4 H (0-0.3) K/mm3 Baso # (Auto) 0.1 (0.0-0.1) K/mm3 Abs Immat Gran (auto) 0.02 (0.00-0.031) K/mm3 Absolute Neuts (auto) 3.8 (1.3-6.7) K/mm3 Absolute Nucleated RBC 0.000 (0.0-0.012) K/mm3 Nucleated RBC % 0.0 (0.0-0.2) % PT 12.7 (11.1-14.7) Seconds INR 0.9 APTT 26.3 (22.3-36.8) Seconds Sodium 142 (137-145) mmol/L Potassium 4.5 (3.4-5.0) mmol/L Chloride 104 (98-107) mmol/L Carbon Dioxide 22 (22-30) mmol/L Anion Gap 16 H (4-12) mmol/L BUN 15 (7-17) mg/dL Creatinine 1.05 H (0.7-1.0) mg/dL Estim Creat Clear Calc Not Reportable Estimated GFR 59 (59 - ) Glucose 103 (65-110) mg/dL Calcium 10.1 (8.4-10.2) mg/dL Total Bilirubin 0.5 (0.2-1.3) mg/dL AST 36 (14-36) U/L ALT 44 H (6-35) U/L Alkaline Phosphatase 58 (38-126) U/L Total Protein 10.0 H (6.3-8.2) g/dL Albumin 5.1 (3.5-5.1) g/dL Urine Color Yellow (Yellow) Urine Appearance Clear (Clear) Urine pH 6.5 (5.0-9.0) Ur Specific [place] 1.009 (1.001-1.035) Urine Protein Negative (Negative) mg/dL Urine Glucose (UA) Negative (Negative) mg/dL Urine Ketones Negative (Negative) mg/dL Ur Blood (Man) Negative (Negative) Urine Nitrate Negative (Negative) Urine Bilirubin Negative (Negative) Urine Urobilinogen 0.2 (<2.0) mg/dL Leukocyte Esterase Rfl Negative (Negative) RONNY/UL Urine Opiates Screen Negative (Negative) Urine Methadone Screen Negative (Negative) Ur Barbiturates Screen Negative (Negative) Ur Phencyclidine Scrn Negative (Negative) Ur Amphetamine Screen Negative (Negative) U Benzodiazepines Scrn Positive A (Negative) Urine Cocaine Screen Negative (Negative) U Cannabinoids Screen Negative (Negative) Ethyl Alcohol < 10 (<10) mg/dL Imaging Data Radiologist's impression: ITS Impressions Chest X-Ray 11/04/24 22:53 IMPRESSION: No acute cardiopulmonary process. Question of soft tissue swelling in the right lower neck. Head/Neck CTA 11/04/24 23:25 IMPRESSION: No acute intracranial process. No large vessel intracranial occlusion, high-grade intracranial stenosis, or aneurysm. 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 No carotid or vertebral artery occlusion, dissection, or significant stenosis. Aerated secretions in the posterior ethmoid sinuses and left sphenoid sinus, may represent sinusitis or mucosal hemorrhage in the setting of trauma. Results reported telephonically to Dr. Leonard by Dr. Costa at 11:53 PM on 11/04/2024. 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 side of face Patient Disposition: Acute Care Hospital Condition: Stable Patient Language: Cameroonian Prescriptions: No Action ondansetron 4 mg tablet,disintegrating 4 mg PO Q6H PRN (Reason: nausea and vomiting) Qty: 14 0RF nitrofurantoin monohyd/m-cryst [Macrobid] 100 mg capsule 100 mg PO Q12H 5 Days Qty: 10 0RF Rx Instructions: must administer with a meal/food doxycycline hyclate 100 mg capsule 100 mg PO BID Qty: 14 0RF doxycycline hyclate 100 mg capsule 100 mg PO BID Qty: 20 0RF cephalexin 500 mg capsule 500 mg PO Q12H 7 Days Qty: 14 0RF prochlorperazine maleate [Compazine] 10 mg tablet 10 mg PO Q8H PRN (Reason: nausea and vomiting) Qty: 10 0RF Follow-up/Referrals: PHYSICIAN,SUCKER MACHINE OPERATOR [Primary Care Provider] -
[2024-11-05 00:27] VITALS: BP 145/87; PULSE 85; RESP 21; O2SAT 100
[2024-11-05 00:28] VITALS: BP 145/87; PULSE 79; RESP 16; O2SAT 100
[2024-11-05 01:01] VITALS: BP 133/97; PULSE 68; RESP 19; O2SAT 99
[2024-11-05 01:46] VITALS: BP 148/95; PULSE 74; RESP 20
== END 2024-11-05 01:57 | disposition short-term general hospital (02) ==
PROVIDERS: Emergency Provider Emergency Medicine
DX: I72.6 Aneurysm of vertebral artery (principal); R29.810 Facial weakness; T14.91XA Suicide attempt, initial encounter; F15.90 Other stimulant use, unspecified, uncomplicated
CPT/HCPCS: 36415; 70496; 70498; 71045; 80053; 80307; 81003; 82077; 85025; 85610; 85730; 93005; 99285; Q9967

== ENCOUNTER 2025-07-28 20:28 | Inpatient (IN) | payer OTHER, SELFPAY ==
--- NOTE | ~2025-07-28 | US_ITS ---
Ultrasound venous duplex upper extremity,left arm CLINICAL HISTORY: injection drug use, swelling . Comparison: None. TECHNIQUE: Grayscale, color, duplex/spectral Doppler sonography. FINDINGS: Left upper extremity internal jugular, subclavian, axillary, brachial, basilic, cephalic veins compressible (where possible) and color Doppler patent with normal phasic flow. No internal echoes. IMPRESSION: 1. No DVT left upper extremity. Reviewed, dictated and finalized at location R. NITIES COORDINATOR
--- NOTE | ~2025-07-28 | CT_ITS ---
EXAM/PROCEDURE: CT UE LT w con HISTORY: Left arm swelling and pain COMPARISON: None available. TECHNIQUE: Contrast-enhanced CT of the left forearm wrist and hand. FINDINGS: Severe soft tissue swelling present in the distal forearm, wrist and hand especially along the dorsal margin with small pockets of peripherally enhancing fluid accumulation possibly representing early abscess formation in the carpal region and proximal hand region. The largest is in the dorsum over the proximal arcade, seen on image 115 series 3, and measures 1.6 x 0.7 x 0.8 cm in the transverse by anteroposterior by cephalocaudal dimensions. An approximately 10 x 10 mm size peripherally enhancing fluid accumulation is also present along the volar margin of the proximal hand along the radial aspect of the thenar eminence as seen on image 116 series 3. Involvement of the extensor tendons in the carpal and metacarpal region may be present. Additionally, fluid appears to be tracking in the abductor pollicis longus muscle belly and tendon and possibly the extensor pollicis brevis muscle and tendon as well. See images 127 through 150 of series 3. No cortical erosion seen to confirm osteomyelitis. Vascular structures appear patent. IMPRESSION: Extensive infiltrative/edematous changes throughout the the forearm wrist and hand most severe in the wrist and hand region where there are also small peripherally enhancing fluid collections concerning for early developing abscess formation. See detailed comments above. If osteomyelitis is a clinical concern, correlation with contrast-enhanced MRI may provide additional beneficial information. Reviewed, dictated and finalized at location A. IFIED PHYSICIAN'S ASSISTANT IMPRESSION: Extensive infiltrative/edematous changes throughout the the forearm wrist and h and most severe in the wrist and hand region where there are also small periphe rally enhancing fluid collections concerning for early developing abscess forma tion. See detailed comments above. If osteomyelitis is a clinical concern, bernarda elation with contrast-enhanced MRI may provide additional beneficial informatio n.
--- NOTE | ~2025-07-28 | XR_ITS ---
Examination: XR forearm LT 2V Clinical History: L forearm swelling, concern for foreign body Comparison: None Technique: 3 views left forearm Findings/impression: 1. Thin metallic foreign body ventral soft tissues proximal forearm. 2. No acute bony abnormality. Reviewed, dictated and finalized at location R. E BENDER
--- NOTE | ~2025-07-28 | US_ITS ---
EXAMINATION: US abdomen limited DATE: 07/29/2025 14:02 INDICATION: Anemia. Untreated hepatitis C. TECHNIQUE: Multiple grayscale and Doppler ultrasound images of the abdomen were obtained. COMPARISON: CT dated 09/16/2015 FINDINGS: The pancreatic head and body are normal in appearance. The pancreatic tail is not visualized. Liver has normal echogenicity and contour, with a smooth surface. No liver lesion identified. No intrahepatic biliary duct dilation suspected. Portal vein diameter of 1.5 cm which is at the upper limits of no rmal. Portal venous flow was seen in the hepatopetal, normal direction and has normal Doppler waveform. Gallbladder is not visualized and reportedly surgically absent. The common bile duct measures 3 mm diameter which is normal. The visualized proximal to mid inferior vena cava is normal. IMPRESSION: 1. Status post cholecystectomy. Otherwise unremarkable right upper quadrant ultrasound.. Reviewed, dictated and finalized at location A. DENT CAREGIVER IMPRESSION: 1. Status post cholecystectomy. Otherwise unremarkable right upper quadrant ult rasound..
[2025-07-28 20:55] VITALS: BP 121/60; PULSE 95; RESP 20; TEMP 37.2; O2SAT 100
[2025-07-29] VITALS (18 sets, daily range): BP systolic 112–149; BP diastolic 67–100; PULSE 64–107; RESP 12–25; TEMP 36.7–38.4; O2SAT 94–100; BMI 22.9
--- NOTE | 2025-07-29 00:29 | ED.UPPEXIN ---
HPI - Extremity Injury (Upper) General Chief Complaint: Extremity Injury, Upper <Yessica Shetty APRN - Last Filed: 07/29/25 03:26> Stated Complaint: swollen left arm to elbow, fentanyl use <Yessica Shetty APRN - Last Filed: 07/29/25 03:26> Time Seen by Provider: 07/28/25 23:44 <Yessica Shetty APRN - Last Filed: 07/29/25 03:26> History of Present Illness HPI narrative: Patient is a 35-year-old female who presents to the ER with left wrist pain and swelling. She reports she has had the symptoms for approximately 5 days. Patient reports she went to an outside emergency room where they did an x-ray and told her she has a ?broken needle in her arm. She reports she also has an abscess on her right forearm but she was able to pop this herself. Patient reports she has had fevers, but is unsure how high. She endorses a history of hepatitis-C, fentanyl and cocaine use, and an allergic reaction to Bactrim. Patient endorses decreased range of motion in her left hand. She denies any pain in her left elbow, purulent drainage from the site, or injury to the site. <Yessica Shetty APRN - Last Filed: 07/29/25 03:26> Related Data Allergies/Adverse Reactions: Allergies Allergy/AdvReac Type Severity Reaction Status Date / Time sulfamethoxazole Allergy Unknown Difficulty Verified 10/31/23 20:15 Breathing trimethoprim Allergy Unknown Difficulty Verified 10/31/23 20:15 Breathing <Yessica Shetty APRN - Last Filed: 07/29/25 03:26> Review of Systems Review of Systems: All systems reviewed & are unremarkable except as noted in HPI and below <Yessica Shetty APRN - Last Filed: 07/29/25 03:26> [facility] Past Medical History Medical History: Medical History Hepatitis C <Yessica Shetty APRN - Last Filed: 07/29/25 03:26> Social History Social History: Social History Substance use: current Substance use type: amphetamines, opiates, IV drugs and methamphetamine Last use: 09/11/20 <Yessica Shetty APRN - Last Filed: 07/29/25 03:26> Exam Narrative: GENERAL: Well appearing, well-nourished, non-toxic, in no acute distress. HEAD: Normocephalic, atraumatic. NECK: Supple. No adenopathy, no masses. RESPIRATORY: Airway patent, respirations nonlabored. Clear to auscultation bilaterally, no rales, rhonchi, wheezing. CARDIOVASCULAR: Regular rate and rhythm without murmurs, rubs, or gallops. Peripheral pulses 2+ and equal bilaterally. ABDOMINAL: Soft, nontender, nondistended, no hepatosplenomegaly. Normoactive BS. MUSCULOSKELETAL: Moves all extremities. Strength/ROM intact without gross deformities. L wrist decreased ROM, excessive edema. No tenderness along sides of left thumb but inability to make a complete fist due to pain and swelling. SKIN: Warm, dry, normal color. No rashes. Significant L forearm redness and swelling. NEURO: A&O X3. Speech clear. Cranial nerves II-XII intact. No ataxic movements. PSYCHIATRIC: Appropriate mood and affect. Normal interaction. <Yessica Shetty APRN - Last Filed: 07/29/25 03:26> Course WHEELCHAIR RENTAL CLERK/PA Physician Supervision This visit was performed by both a physician and an Advanced Practice Provider. I performed all aspects of the Medical Decision Making as documented. <Victorino Lee MD - Last Filed: 07/29/25 05:58> Vital Signs Vital signs: Vital Signs Temperature 37.2 C 07/28/25 20:55 Pulse Rate 95 07/28/25 20:55 Respiratory Rate 20 07/28/25 20:55 Blood Pressure 121/60 07/28/25 20:55 Pulse Oximetry 100 07/28/25 20:55 Temperature 38.4 C H 07/29/25 05:03 Pulse Rate 102 H 07/29/25 04:49 Respiratory Rate 15 07/29/25 04:49 Blood Pressure 112/85 07/29/25 02:30 Pulse Oximetry 99 07/29/25 04:49 <Yessica Shetty APRN - Last Filed: 07/29/25 03:26> Vital Signs Temperature 37.2 C 07/28/25 20:55 Pulse Rate 95 07/28/25 20:55 Respiratory Rate 20 07/28/25 20:55 Blood Pressure 121/60 07/28/25 20:55 Pulse Oximetry 100 07/28/25 20:55 Temperature 38.4 C H 07/29/25 05:03 Pulse Rate 102 H 07/29/25 04:49 Respiratory Rate 15 07/29/25 04:49 Blood Pressure 112/85 07/29/25 02:30 Pulse Oximetry 99 07/29/25 04:49 <Victorino Lee MD - Last Filed: 07/29/25 05:58> MDM MDM Narrative Medical decision making narrative: Patient is a 35-year-old female who presents to the ER with left wrist pain and swelling. She reports she has had the symptoms for approximately 5 days. Patient reports she went to an outside emergency room where they did an x-ray and told her she has a ?broken needle in her arm. She reports she also has an abscess on her right forearm but she was able to pop this herself. Patient reports she has had fevers, but is unsure how high. She endorses a history of hepatitis-C, fentanyl and cocaine use, and an allergic reaction to Bactrim. Patient endorses decreased range of motion in her left hand. She denies any pain in her left elbow, purulent drainage from the site, or injury to the site. Labs Ordered: CBC, CMP, PTT, INR, blood cultures, lactic acid, CRP Imaging Ordered: Left venous ultrasound, left forearm x-ray Medications Ordered: 1 L normal saline IV bolus, Dilaudid 0.5 mg IV x2, vancomycin IV Results: Patient's ultrasound indicates no DVT seen in the evaluated veins. Patient's x-ray indicates proximal forearm soft tissue 0.7 cm retained radiopacity. Diagnosis: Left forearm cellulitis, right forearm infection, retained needle in left forearm Consults: General surgery, Plastic surgery MDM: Results of imaging and lab work shared with patient. She continues to endorse significant pain. Will give pt a second dose of Dilaudid IV. It was advised patient be admitted to the hospital for further evaluation and treatment. Patient verbalized understanding and is in agreement with plan. 0300- Spoke with hospitalist, Trista Sanchez NP, who is in agreement with plan for admission. Pt will be admitted to the med/surg floor. She will be continued on IV antibiotics. General surgery and plastics will be consulted regarding pt's retained needle in her L forearm. <Yessica Shetty APRN - Last Filed: 07/29/25 03:26> Differential Diagnosis Differential Diagnosis: Left forearm cellulitis, left hand cellulitis, sepsis, right forearm open wound, history IV drug abuse, anemia <Yessica Shetty APRN - Last Filed: 07/29/25 03:26> Lab Data MDM Lab Attestation statement: I personally reviewed the patient's lab results. <Yessica Shetty APRN - Last Filed: 07/29/25 03:26> Result diagrams: 07/29/25 01:21 07/29/25 01:21 <Yessica Shetty APRN - Last Filed: 07/29/25 03:26> Labs: Lab Results 07/29/25 Range/Units 01:21 WBC 11.8 H (4.5-10.0) K/mm3 RBC 3.68 L (4.2-5.4) M/mm3 Hgb 7.3 L D (12.0-15.0) g/dL Hct 25.5 L (37.0-47.0) % MCV 69.3 L (80-100) fl MCH 19.8 L (26-34) pg MCHC 28.6 L (32-36) g/dl RDW 16.6 H (11.5-14.5) % Plt Count 273 (150-375) k/mm3 MPV 8.7 (7.4-10.4) fl Immature Gran % (Auto) 0.3 (0-0.5) % Neut % (Auto) 63.0 (45.5-73.1) % Lymph % (Auto) 25.6 (18.3-44.2) % [place] % (Auto) 9.0 H (2.6-8.5) % Eos % (Auto) 1.7 (0-4.4) % Baso % (Auto) 0.4 (0.2-1.2) % Lymph # (Auto) 3.02 (0.9-3.2) K/mm3 [place] # (Auto) 1.1 H (0.1-0.6) K/mm3 Eos # (Auto) 0.2 (0-0.3) K/mm3 Baso # (Auto) 0.1 (0.0-0.1) K/mm3 Abs Immat Gran (auto) 0.04 H (0.00-0.031) K/mm3 Absolute Neuts (auto) 7.4 H (1.3-6.7) K/mm3 Absolute Nucleated RBC 0.000 (0.0-0.012) K/mm3 Band Neutrophils % Not Reportable Nucleated RBC % 0.0 (0.0-0.2) % Platelet Estimate Adequate (Adequate) Hypochromasia 1+ Microcytosis 1+ (NORMAL) Schistocytes None seen PT 16.7 H (11.1-14.7) Seconds INR 1.4 APTT 35.1 (22.3-36.8) Seconds Sodium 135 L (137-145) mmol/L Potassium 3.7 (3.4-5.0) mmol/L Chloride 106 (98-107) mmol/L Carbon Dioxide 25 (22-30) mmol/L Anion Gap 4 (4-12) mmol/L BUN 12 (7-17) mg/dL Creatinine 0.78 (0.7-1.0) mg/dL Estim Creat Clear Calc 80 ml/min Estimated GFR > 60 (59 - ) Glucose 98 (65-110) mg/dL Lactic Acid 0.6 L (0.7-2.0) mmol/L Calcium 8.3 L (8.4-10.2) mg/dL Total Bilirubin 0.3 (0.2-1.3) mg/dL AST 20 (14-36) U/L ALT 12 (6-35) U/L Alkaline Phosphatase 52 (38-126) U/L C-Reactive Protein 5.6 H (<1.0) mg/dL Total Protein 7.0 (6.3-8.2) g/dL Albumin 3.3 L (3.5-5.1) g/dL <Yessica Shetty, HEALTH TYPE TECHNICIAN - Last Filed: 07/29/25 03:26> Lab Results 07/29/25 Range/Units 01:21 WBC 11.8 H (4.5-10.0) K/mm3 RBC 3.68 L (4.2-5.4) M/mm3 Hgb 7.3 L D (12.0-15.0) g/dL Hct 25.5 L (37.0-47.0) % MCV 69.3 L (80-100) fl MCH 19.8 L (26-34) pg MCHC 28.6 L (32-36) g/dl RDW 16.6 H (11.5-14.5) % Plt Count 273 (150-375) k/mm3 MPV 8.7 (7.4-10.4) fl Immature Gran % (Auto) 0.3 (0-0.5) % Neut % (Auto) 63.0 (45.5-73.1) % Lymph % (Auto) 25.6 (18.3-44.2) % [place] % (Auto) 9.0 H (2.6-8.5) % Eos % (Auto) 1.7 (0-4.4) % Baso % (Auto) 0.4 (0.2-1.2) % Lymph # (Auto) 3.02 (0.9-3.2) K/mm3 [place] # (Auto) 1.1 H (0.1-0.6) K/mm3 Eos # (Auto) 0.2 (0-0.3) K/mm3 Baso # (Auto) 0.1 (0.0-0.1) K/mm3 Abs Immat Gran (auto) 0.04 H (0.00-0.031) K/mm3 Absolute Neuts (auto) 7.4 H (1.3-6.7) K/mm3 Absolute Nucleated RBC 0.000 (0.0-0.012) K/mm3 Band Neutrophils % Not Reportable Nucleated RBC % 0.0 (0.0-0.2) % Platelet Estimate Adequate (Adequate) Hypochromasia 1+ Microcytosis 1+ (NORMAL) Schistocytes None seen PT 16.7 H (11.1-14.7) Seconds INR 1.4 APTT 35.1 (22.3-36.8) Seconds Sodium 135 L (137-145) mmol/L Potassium 3.7 (3.4-5.0) mmol/L Chloride 106 (98-107) mmol/L Carbon Dioxide 25 (22-30) mmol/L Anion Gap 4 (4-12) mmol/L BUN 12 (7-17) mg/dL Creatinine 0.78 (0.7-1.0) mg/dL Estim Creat Clear Calc 80 ml/min Estimated GFR > 60 (59 - ) Glucose 98 (65-110) mg/dL Lactic Acid 0.6 L (0.7-2.0) mmol/L Calcium 8.3 L (8.4-10.2) mg/dL Total Bilirubin 0.3 (0.2-1.3) mg/dL AST 20 (14-36) U/L ALT 12 (6-35) U/L Alkaline Phosphatase 52 (38-126) U/L C-Reactive Protein 5.6 H (<1.0) mg/dL Total Protein 7.0 (6.3-8.2) g/dL Albumin 3.3 L (3.5-5.1) g/dL <Victorino Lee MD - Last Filed: 07/29/25 05:58> Imaging Data Attestation: I personally reviewed and interpreted this imaging study as follows: <Yessica Shetty APRN - Last Filed: 07/29/25 03:26> Radiologist's impression: Patient's ultrasound indicates no DVT seen in the evaluated veins. Patient's x-ray indicates proximal forearm soft tissue 0.7 cm retained radiopacity. <Yessica Shetty APRN - Last Filed: 07/29/25 03:26> Discharge Plan Discharge Clinical Impression: Cellulitis of forearm, left, Infected abrasion of right forearm, Retained foreign body of forearm, Cellulitis of finger of left hand, History of intravenous drug use, Anemia <Yessica Shetty APRN - Last Filed: 07/29/25 03:26> Patient Disposition: Still a Patient <Yessica Shetty APRN - Last Filed: 07/29/25 03:26> Condition: Stable <Yessica Shetty APRN - Last Filed: 07/29/25 03:26>
[2025-07-29 01:29] LABS: Hematocrit 25.5 % (37.0-47.0); Hemoglobin 7.3 g/dL (12.0-15.0); Immature Granulocyte Percent A 0.3 % (0-0.5); Lymphocytes Absolute Auto 3.02 K/mm3 (0.9-3.2); Mean Corpuscular HGB Conc 28.6 g/dl (32-36); Mean Corpuscular Hemoglobin 19.8 pg (26-34); Mean Corpuscular Volume 69.3 fl (80-100); Nucleated Red Blood Cells Absolute Auto 0.000 K/mm3 (0.0-0.012); Nucleated Red Blood Cells Perc 0.0 % (0.0-0.2); Platelet Count Result 273 k/mm3 (150-375); Red Blood Count 3.68 M/mm3 (4.2-5.4); White Blood Count 11.8 K/mm3 (4.5-10.0)
[2025-07-29] MEDS: HYDROmorphone HCL INJ (*CRX) 1 MG/ML SYR 0.5 MG IV PUSH ×4 (01:34→15:25)
[2025-07-29] MEDS: SODIUM CHLORIDE 0.9% IV 1,000 ML 999 ML IV CONT (01:34)
[2025-07-29] MEDS: SODIUM CHLORIDE 0.9% IV 900 ML 999 ML IV CONT (01:35)
[2025-07-29 01:41] LABS: Alanine Aminotransferase 12 U/L (6-35); Albumin Level 3.3 g/dL (3.5-5.1); Alkaline Phosphatase 52 U/L (38-126); Anion Gap 4 mmol/L (4-12); Aspartate Amino Transferase 20 U/L (14-36); Bilirubin,Total 0.3 mg/dL (0.2-1.3); Blood Urea Nitrogen 12 mg/dL (7-17); CRP 5.6 mg/dL (<1.0); Calcium 8.3 mg/dL (8.4-10.2); Carbon Dioxide 25 mmol/L (22-30); Chloride 106 mmol/L (98-107); Estimated CRCL calculation 80 ml/min; Estimated Glomerular Filt Rate > 60; Glucose 98 mg/dL (65-110); Potassium 3.7 mmol/L (3.4-5.0); Sodium 135 mmol/L (137-145); Total Protein 7.0 g/dL (6.3-8.2)
[2025-07-29 01:46] LABS: INR 1.4; Prothrombin Time 16.7 Seconds (11.1-14.7)
[2025-07-29 01:47] LABS: Partial Thromboplastin Time 35.1 Seconds (22.3-36.8)
[2025-07-29 01:48] LABS: Hypochromasia 1+; Microcytosis 1+ (NORMAL); Schistocytes None Seen
[2025-07-29] MEDS: VANCOMYCIN 1,500 MG/NS 500 ML 1,500 MG/500 ML BAG 250 MG IVPB (02:20)
[2025-07-29] MEDS: SODIUM CHLORIDE 0.9% IV 1,000 ML 125 ML IV CONT (03:54)
[2025-07-29] MEDS: ACETAMINOPHEN 500 MG TABLET 1000 MG PO (05:03)
--- NOTE | 2025-07-29 05:54 | WPCEDHO ---
ED Hand Off Checklist All vitals savedYES IV Site documented:YES All med administrations documented:YES Triage Note Triage Note Patient c/o left arm swelling. 07/28/25 20:51 She states she is an IV drug user , last used fentanyl an hour ago. Allergies sulfamethoxazole Allergy (Unknown, Verified 10/31/23 20:15) Difficulty Breathing trimethoprim Allergy (Unknown, Verified 10/31/23 20:15) Difficulty Breathing Active Medications including assessments/comments Sodium Chloride (Normal Saline Iv) 1,000 mls @ 125 mls/hr IV CONT .Q8H JAD Last Admin: 07/29/25 03:54 Dose: 125 mls/hr Documented By: RIGOBERTOW Infusion/Titration Document 07/29/25 03:54 EMW (Rec: 07/29/25 03:54 EMW [id number]) Intake IV Site Peripheral Access Right Antecubital Container Volume 1,000 Waste Amount 0 Dosing Infusion Rate 125 Cumulative Dose Not Applicable Increase/Decrease Started Elapsed Time Elapsed Time ( 0m minutes) Administered/Completed Medications Discontinued Medications Acetaminophen (Acetaminophen 500 Mg Tablet) 1,000 mg PO ONCE ONE Stop: 07/29/25 04:54 Last Admin: 07/29/25 05:03 Dose: 1,000 mg Documented By: ANURAG Hydromorphone HCl (Hydromorphone Hcl Inj (*Crx) 1 Mg/Ml Syr) 0.5 mg IV PUSH ONCE STA Stop: 07/29/25 00:27 Last Admin: 07/29/25 01:34 Dose: 0.5 mg Documented By: ANURAG Hydromorphone HCl (Hydromorphone Hcl Inj (*Crx) 1 Mg/Ml Syr) 0.5 mg IV PUSH ONCE STA Stop: 07/29/25 03:02 Last Admin: 07/29/25 03:54 Dose: 0.5 mg Documented By: RIGOBERTOW Sodium Chloride (Normal Saline Iv) 1,000 mls @ 999 mls/hr IV CONT .Q1H1M STA Stop: 07/29/25 01:31 Last Infusion: 07/29/25 02:40 Dose: Infused Documented By: Admin: 07/29/25 01:34 Dose: 999 mls/hr Documented By: ANURAG Sodium Chloride (Normal Saline Iv) 900 mls @ 999 mls/hr IV CONT .Q55M STA Stop: 07/29/25 01:25 Last Infusion: 07/29/25 02:41 Dose: Infused Documented By: Admin: 07/29/25 01:35 Dose: 999 mls/hr Documented By: ANURAG Vancomycin HCl (Vancomycin 1,500 Mg/Ns 500 Ml) 1,500 mg in 500 mls @ 250 mls/hr IVPB ONCE ONE Stop: 07/29/25 03:59 Last Infusion: 07/29/25 05:17 Dose: Infused Documented By: Admin: 07/29/25 02:20 Dose: 250 mls/hr Documented By: ANURAG Interventions/Assessments IV / Saline Lock, Insert Start: 07/28/25 20:29 Freq: Status: Active Protocol: Document 07/29/25 01:34 EMW (Rec: 07/29/25 01:35 EMW [id number]) IV Assessment Peripheral Access Right Antecubital IV Catheter Access Initiated IV Insertion Date 07/29/25 IV Insertion Time 01:34 Catheter Gauge 20 IV Insertion 1 Attempts Ultrasound Used for No Placement IV Site Assessment WNL IV Care and WNL Maintenance Last Vital Signs Temperature 101.2 F H 07/29/25 05:03 Pulse Rate 102 H 07/29/25 04:49 Respiratory Rate 15 07/29/25 04:49 Pulse Oximetry 99 07/29/25 04:49 Blood Pressure 112/85 07/29/25 02:30 Blood Pressure Mean 94 07/29/25 02:30 Weight 61.7 kg 07/28/25 20:56 Last Result - Abnormals Only WBC 11.8 K/mm3 (4.5-10.0) H 07/29/25 01:21 RBC 3.68 M/mm3 (4.2-5.4) L 07/29/25 01:21 Hgb 7.3 g/dL (12.0-15.0) L D 07/29/25 01:21 Hct 25.5 % (37.0-47.0) L 07/29/25 01:21 MCV 69.3 fl (80-100) L 07/29/25 01:21 MCH 19.8 pg (26-34) L 07/29/25 01:21 MCHC 28.6 g/dl (32-36) L 07/29/25 01:21 RDW 16.6 % (11.5-14.5) H 07/29/25 01:21 [place] % (Auto) 9.0 % (2.6-8.5) H 07/29/25 01:21 [place] # (Auto) 1.1 K/mm3 (0.1-0.6) H 07/29/25 01:21 Abs Immat Gran (auto) 0.04 K/mm3 (0.00-0.031) H 07/29/25 01:21 Absolute Neuts (auto) 7.4 K/mm3 (1.3-6.7) H 07/29/25 01:21 PT 16.7 Seconds (11.1-14.7) H 07/29/25 01:21 Sodium 135 mmol/L (137-145) L 07/29/25 01:21 Lactic Acid 0.6 mmol/L (0.7-2.0) L 07/29/25 01:21 Calcium 8.3 mg/dL (8.4-10.2) L 07/29/25 01:21 C-Reactive Protein 5.6 mg/dL (<1.0) H 07/29/25 01:21 Albumin 3.3 g/dL (3.5-5.1) L 07/29/25 01:21 Most Recent Suicide Severity Rating Suicide Severity Rating NO RISK INDICATED 07/28/25 20:51
--- NOTE | 2025-07-29 06:47 | PC.NURSE ---
PATIENT ARRIVED ON 3 [facility]G AT 0647
--- NOTE | 2025-07-29 07:54 | P.HP_ITS ---
H&P: HPI History of Present Illness Date/Time: 07/29/25 07:54 Chief Complaint: - forearm swelling Narrative: Patient is a 35 yo female with PMH of IVDU who presented with L forearm swelling and retained foreign body. Patient is somewhat of a poor historian. Reports over 15 years of chronic IV drug use, last used IV fentanyl yesterday. Also uses cocaine. Had recent history of right upper extremity cellulitis for which she was managed with IV antibiotics in the hospital. She reports her left upper extremity has been swelling and red for about 5 days. Reports that she was seen in outside ER and was told that she had a broken needle in her arm. She does report that she had a small fluid collection that she drained herself. Also reports associated subjective fever. Patient has history of untreated hepatitis C. she does not recall a time where she has been told that she is anemic. She no longer has menstrual periods. Denies any bloody or black/tarry stools. In ED, WBC 11.8, hemoglobin 7.3, MCV 69, CRP 5.6. XR left forearm with metallic foreign body. Venous Doppler negative for DVT. Patient meeting sepsis criteria on admission. Patient was started on IV vancomycin. Review of Systems Review of Systems: All systems reviewed & are unremarkable except as noted in HPI and below PMFSH Past Medical History Medical History Hepatitis C Surgical History Surgical History History of myringotomy Family History Family History Father Depression Anxiety Mother Depression Anxiety Sibling Depression Anxiety Sibling Depression Anxiety Social History Social History Smoking status: Current every day smoker Tobacco type: cigarettes Alcohol intake: never Substance use: current Substance use type: crack/cocaine and opiates Other substance usage details: methamphetamine, fentanyl, polysubstance use Last use: 09/11/20 Lack of Transportation: No Lack of Food: Never True Current Housing: I Have Housing Concerned About Future Housing: No Difficulty Paying Gas/Electric Bills: No Difficulty Paying for Meds: No Currently Unemployed: YES Education: High School Diploma/GED Difficulty w/ Childcare or Family Care: No Spiritual care concerns: No Meds Home Medications and Allergies Home Medications ?Medication ?Instructions ?Recorded ?Confirmed ?Type No Home Medications 07/29/25 07/29/25 H istory Allergies Allergy/AdvReac Type Severity Reaction Status Date / Time sulfamethoxazole Allergy Unknown Difficulty Verified 07/29/25 06:39 Breathing trimethoprim Allergy Unknown Difficulty Verified 07/29/25 06:39 Breathing Vital Signs Vital Signs - 24 hr 07/28/25 20:55 07/29/25 00:15 07/29/25 00:30 Temperature 99 F Pulse Rate 95 64 Respiratory Rate 20 12 16 Blood Pressure 121/60 131/83 141/91 H Pulse Oximetry 100 100 94 07/29/25 01:01 07/29/25 02:30 07/29/25 04:49 Temperature 101.2 F H Pulse Rate 98 102 H Respiratory Rate 18 15 Blood Pressure 134/89 112/85 Pulse Oximetry 100 99 07/29/25 04:54 07/29/25 05:00 07/29/25 05:01 Temperature Pulse Rate 101 H 105 H 105 H Respiratory Rate 14 19 17 Blood Pressure 145/100 H 149/93 H Pulse Oximetry 100 100 100 07/29/25 05:03 07/29/25 05:15 07/29/25 05:16 Temperature 101.2 F H Pulse Rate 105 H 106 H Respiratory Rate 16 12 Blood Pressure 148/87 H Pulse Oximetry 100 100 07/29/25 05:30 07/29/25 05:31 07/29/25 05:45 Temperature Pulse Rate 101 H 101 H 107 H Respiratory Rate 13 13 25 H Blood Pressure 119/67 Pulse Oximetry 100 100 100 07/29/25 05:46 07/29/25 06:44 Temperature 98.5 F 98.5 F Pulse Rate 105 H Respiratory Rate Blood Pressure 127/70 Pulse Oximetry 100 Exam Narrative: General: NAD, chronically ill-appearing Eyes: EOMI ENT: neck supple Cardiovascular: Regular rate and rhythm Respiratory: Clear to auscultation, respirations even and unlabored on RA Gastrointestinal: Soft, non tender Genitourinary: no suprapubic tenderness Musculoskeletal: 1-2+ pitting edema of LUE including hand, limited ROM of LUE due to edema. L forearm and hand tender to palpation Skin: warm, dry, no erythema of LUE, track llanes BUEs Neuro: Alert. Psych: Mood appropriate Results Labs Labs: Short CBC 07/29/25 Range/Units 01:21 WBC 11.8 H (4.5-10.0) K/mm3 Hgb 7.3 L D (12.0-15.0) g/dL Hct 25.5 L (37.0-47.0) % Plt Count 273 (150-375) k/mm3 BMP 07/29/25 01:21 Sodium 135 L Potassium 3.7 Chloride 106 Carbon Dioxide 25 BUN 12 Creatinine 0.78 Glucose 98 Calcium 8.3 L Liver Function 07/29/25 Range/Units 01:21 Total Bilirubin 0.3 (0.2-1.3) mg/dL AST 20 (14-36) U/L ALT 12 (6-35) U/L Alkaline Phosphatase 52 (38-126) U/L Albumin 3.3 L (3.5-5.1) g/dL Quality VTE Prophylaxis VTE prophylaxis: mechanical ordered Assessment and Plan Assessment and plan (1) Sepsis: Code(s): A41.9 - Sepsis, unspecified organism Status: Acute Assessment and Plan: - criteria met with T max 101.2, tachycardia, tachypnea, leukocytosis - LA WNL, BP stable - source: L forearm cellulitis - continue IV vancomycin - follow-up blood cultures - improving today (2) Cellulitis of forearm, left: Code(s): L03.114 - Cellulitis of left upper limb Status: Deleted Assessment and Plan: - IV drug user x 15 years - sepsis as above - XR left forearm with metallic foreign body. -Venous Doppler negative for DVT. - continue IV vancomycin - discussed with hand surgery, Dr. Pizarro, over the phone - general surgery comfortable managing for now. If CT shows concern for deep infection, will re- consult. - general surgery consulted - recommended to continue IV abx. Obtain CT LUE to evaluate for deep infection. - follow-up blood cultures. Trend CBC and inflammatory markers (3) Retained foreign body of forearm: Code(s): M79.5 - Residual foreign body in soft tissue Status: Acute Assessment and Plan: - general surgery consulted - no plans to remove foreign body at this time. Management of infection as above. (4) Anemia: Code(s): D64.9 - Anemia, unspecified Status: Acute Assessment and Plan: - Hgb 7.3, MCV 69. T sat low and ferritin low normal - denies signs of bleeding. No longer has menstrual periods. - ordered RUQ US to assess for cirrhosis given history of untreated hep C - start iron supplement. - consider hematology consult (5) History of intravenous drug use: Code(s): Z87.898 - Personal history of other specified conditions Status: Acute Assessment and Plan: - over 15 years of IV fentanyl and cocaine use. UDS pending. - cessation advised. Patient possibly interested in rehab. Care coordination consulted. - continue PRN opiates for pain and PRN medications for symptoms of opiate withdrawal Plan Code status: full code DVT prophylaxis: ambulation Dispo: TBD pending clinical course Prior Studies I have reviewed the following patient records and this information was taken into consideration when formulating the assessment and plan.: previous labs, previous ER visits and previous hospitalizations Consultations Consultations: I have discussed the care of this pt with the consulting providers. (general surgery and hand surgery) Hospitalist MIPS Advance Care Plan I have confirmed that the patient's Advanced Care Plan is present, code status is documented, or surrogate decision maker is listed in patient medical record.: Yes Medication Reconciliation I have utilized all available resources to obtain, update and review the patients current medications (includes all prescriptions, OTC, herbals, cannabis, and nutritional supplements).: Yes
[2025-07-29 08:37] LABS: Iron 24 ug/dL (37-170)
[2025-07-29 08:47] LABS: Percent Iron Saturation 6 % (20-50)
[2025-07-29 09:14] LABS: Ferritin 9.21 ng/mL (6.24-137)
--- NOTE | 2025-07-29 10:11 | PHAR ---
Unmarked capsules found on patient: #2 dark blue & black capsules #1 green & light green capsule #1 pink & light blue capsule No identifiable markings on any of the capsules. Patient is known IV drug user - high probability that substances are illicit. Substances passed off to [facility] Moralez, [facility] for storage/disposal
--- NOTE | 2025-07-29 10:21 | P.CONGS_ITS ---
Assessment and Plan Assessment and plan (1) Cellulitis of left upper extremity: Code(s): L03.114 - Cellulitis of left upper limb Status: Acute Assessment and Plan: * The patient has diffuse swelling of the left forearm and hand with diffuse mild erythema of the left hand. The swelling and redness is mostly focused within the left hand. LUE venous doppler was negative for DVT. She also reports chronic bilateral hand swelling and is an IV drug user with multiple track llanes along her bilateral forearms. She had a forearm x-ray in the ER that showed a linear, thin about 8mm metallic foreign body in the ventral left forearm. The patient does not recall when this would have occurred and cannot recall any issue with recently injecting and having a missing needle. The foreign body does not appear to be at the skin surface and could very well be chronic. There is no localized erythema or swelling in the area of the foreign body on my exam that is concerning for an abscess. Would recommend leaving the foreign body alone at this time, and we will order a CT scan of the left forearm and hand to further evaluate the hand erythema and swelling, as her issues seems to be more localized to her left hand. No paresthesias or other clinical findings concerning for compartment syndrome. We would recommend to continue IV antibiotics and monitor for now, and will await CT results. (2) Retained foreign body of forearm: Code(s): M79.5 - Residual foreign body in soft tissue Status: Acute (3) History of intravenous drug use: Code(s): Z87.898 - Personal history of other specified conditions Status: Acute (4) Anemia: Code(s): D64.9 - Anemia, unspecified Status: Acute Plan I have discussed the patient's case, recommendations, and treatment plan with Dr. Roper. History of Present Illness Consult details Consult date: 07/29/25 Reason for consult: other (Retained needle in left forearm) Requesting physician: Suzanne Day PA Narrative: This is a 35-year-old female with history of polysubstance abuse and untreated hepatitis C, who we have been asked to see in surgical consultation for retained foreign body in left forearm. She admits to recently injecting fentanyl but cannot recall having a needle break off or that was left in her arm. She reports noticing a needle on the syringe anytime she has been injecting. She has multiple track llanes on her upper extremities and reports chronic swelling of her hands. Over the past week, she has had increased swelling and pain in her left hand and forearm. She does not recall any injury to this arm. She also reports recently going to [facility] for swelling in her right arm. She left AMA and put a warm compress on her arm, which then developed a head and she popped this area with her fingers. She reports pus coming from this wound and the swelling and tenderness has improved significantly. She came into the ER last night due to the increased swelling in her left arm. Workup showed WBC count 11,800, hemoglobin 7.3 with previous hemoglobin earlier this year at 14. Left upper extremity venous doppler negative. Left forearm x- ray showed thin metallic foreign body ventral soft tissues proximal forearm with no acute bony abnormality. She was admitted to the Hospitalist and now see in consultation. Review of Systems 2 Review of Systems: All systems reviewed & are unremarkable except as noted in HPI and below PMFSH Past Medical History Medical History Hepatitis C Surgical History Surgical History History of myringotomy Family History Family History Father Depression Anxiety Mother Depression Anxiety Sibling Depression Anxiety Sibling Depression Anxiety Social History Social History Smoking status: Current every day smoker Tobacco type: cigarettes Alcohol intake: never Substance use: current Substance use type: crack/cocaine and opiates Other substance usage details: methamphetamine, fentanyl, polysubstance use Last use: 09/11/20 Lack of Transportation: No Lack of Food: Never True Current Housing: I Have Housing Concerned About Future Housing: No Difficulty Paying Gas/Electric Bills: No Difficulty Paying for Meds: No Currently Unemployed: YES Education: High School Diploma/GED Difficulty w/ Childcare or Family Care: No Spiritual care concerns: No Meds Home Medications and Allergies Home Medications ?Medication ?Instructions ?Recorded ?Confirmed ?Type No Home Medications 07/29/25 07/29/25 H istory Allergies Allergy/AdvReac Type Severity Reaction Status Date / Time sulfamethoxazole Allergy Unknown Difficulty Verified 07/29/25 06:39 Breathing trimethoprim Allergy Unknown Difficulty Verified 07/29/25 06:39 Breathing Vital Signs Vital Signs - 24 hr 07/28/25 20:55 07/29/25 00:15 07/29/25 00:30 Temperature 99 F Pulse Rate 95 64 Respiratory Rate 20 12 16 Blood Pressure 121/60 131/83 141/91 H Pulse Oximetry 100 100 94 07/29/25 01:01 07/29/25 02:30 07/29/25 04:49 Temperature 101.2 F H Pulse Rate 98 102 H Respiratory Rate 18 15 Blood Pressure 134/89 112/85 Pulse Oximetry 100 99 07/29/25 04:54 07/29/25 05:00 07/29/25 05:01 Temperature Pulse Rate 101 H 105 H 105 H Respiratory Rate 14 19 17 Blood Pressure 145/100 H 149/93 H Pulse Oximetry 100 100 100 07/29/25 05:03 07/29/25 05:15 07/29/25 05:16 Temperature 101.2 F H Pulse Rate 105 H 106 H Respiratory Rate 16 12 Blood Pressure 148/87 H Pulse Oximetry 100 100 07/29/25 05:30 07/29/25 05:31 07/29/25 05:45 Temperature Pulse Rate 101 H 101 H 107 H Respiratory Rate 13 13 25 H Blood Pressure 119/67 Pulse Oximetry 100 100 100 07/29/25 05:46 07/29/25 06:44 Temperature 98.5 F 98.5 F Pulse Rate 105 H Respiratory Rate Blood Pressure 127/70 Pulse Oximetry 100 Exam 2 Const: General: no acute distress Nutritional Appearance: average body habitus Orientation/consciousness: patient oriented x3 HENMT: Head: normocephalic and atraumatic Ears: hearing grossly normal bilaterally Eyes: General: appearance normal, both eyes and all related structures P upils: Equal, round and reactive pupils present Neck: Neck: normal visual inspection and full ROM Resp: Effort & Inspection: no respiratory distress Auscultation: clear to auscultation bilaterally Cardio: Rate: regular rate Rhythm: regular rhythm Peripheral pulses: P eripheral pulses 2+ throughout GI: Inspection: non-distended GI Palp: Yes Soft to palpation, No Tenderness to palpation present (GI), No Guarding due to palpation present (GI) and No Rebound tenderness present Auscultation: normal bowel sounds Skin: General skin exam: pallor Other: Multiple tiny puncture llanes scattered on bilateral forearms c/w track llanes Neuro: General: patient oriented x3, moves all extremities and no focal motor deficits Speech: normal speech Motor exam (neuro): 5/5 motor strength present throughout Extrem: Right lower extremity: normal to inspection, full ROM and normal capillary refill; no edema Left lower extremity: normal to inspection, full ROM and normal capillary refill; no edema Other: RUE - there is mild diffuse edema of the distal forearm and spreading into the entire hand. No erythema. Full range of motion of fingers and wrist. No pain or tenderness. There is a scabbed area on the ventral right forearm with about 1-2 cm area of mild erythema and swelling, reportedly improved per patient. No drainage or obvious fluctuance, and nontender. The remainder of the forearm is without redness LUE - there is diffuse edema of the left forearm and extending distally, involving the entire left hand. There is no erythema or skin changes of the entire left forearm. The left hand has mild diffuse erythema noted. No area of fluctuance or induration. She has some diffuse tenderness of the left forearm and hand. She has good ROM of the left wrist, but slightly decreased ROM of fingers with hand application support lead. Bilateral upper extremity sensation intact. Cap refill normal. Biltareal hands are warm to touch and radial pulses strong and palpable. Psych: Mental Status: mental status grossly normal Attitude: cooperative Results Labs 07/29/25 01:21 07/29/25 01:21 Labs: Abnormal lab results 07/29/25 07/29/25 Range/Units 01:20 01:21 WBC 11.8 H (4.5-10.0) K/mm3 RBC 3.68 L (4.2-5.4) M/mm3 Hgb 7.3 L D (12.0-15.0) g/dL Hct 25.5 L (37.0-47.0) % MCV 69.3 L (80-100) fl MCH 19.8 L (26-34) pg MCHC 28.6 L (32-36) g/dl RDW 16.6 H (11.5-14.5) % [place] % (Auto) 9.0 H (2.6-8.5) % [place] # (Auto) 1.1 H (0.1-0.6) K/mm3 Abs Immat Gran (auto) 0.04 H (0.00-0.031) K/mm3 Absolute Neuts (auto) 7.4 H (1.3-6.7) K/mm3 PT 16.7 H (11.1-14.7) Seconds Sodium 135 L (137-145) mmol/L Lactic Acid 0.6 L (0.7-2.0) mmol/L Calcium 8.3 L (8.4-10.2) mg/dL Iron 24 L (37-170) ug/dL % Saturation 6 L (20-50) % C-Reactive Protein 5.6 H (<1.0) mg/dL Albumin 3.3 L (3.5-5.1) g/dL Diabetes panel 07/29/25 Range/Units 01:21 Sodium 135 L (137-145) mmol/L Potassium 3.7 (3.4-5.0) mmol/L Chloride 106 (98-107) mmol/L Carbon Dioxide 25 (22-30) mmol/L BUN 12 (7-17) mg/dL Creatinine 0.78 (0.7-1.0) mg/dL Glucose 98 (65-110) mg/dL Calcium 8.3 L (8.4-10.2) mg/dL AST 20 (14-36) U/L ALT 12 (6-35) U/L Alkaline Phosphatase 52 (38-126) U/L Total Protein 7.0 (6.3-8.2) g/dL Albumin 3.3 L (3.5-5.1) g/dL Calcium panel 07/29/25 Range/Units 01:21 Calcium 8.3 L (8.4-10.2) mg/dL Albumin 3.3 L (3.5-5.1) g/dL Pituitary panel 07/29/25 Range/Units 01:21 Sodium 135 L (137-145) mmol/L Potassium 3.7 (3.4-5.0) mmol/L Chloride 106 (98-107) mmol/L Carbon Dioxide 25 (22-30) mmol/L BUN 12 (7-17) mg/dL Creatinine 0.78 (0.7-1.0) mg/dL Glucose 98 (65-110) mg/dL Calcium 8.3 L (8.4-10.2) mg/dL Adrenal panel 07/29/25 Range/Units 01:21 Sodium 135 L (137-145) mmol/L Potassium 3.7 (3.4-5.0) mmol/L Chloride 106 (98-107) mmol/L Carbon Dioxide 25 (22-30) mmol/L BUN 12 (7-17) mg/dL Creatinine 0.78 (0.7-1.0) mg/dL Glucose 98 (65-110) mg/dL Calcium 8.3 L (8.4-10.2) mg/dL Total Bilirubin 0.3 (0.2-1.3) mg/dL AST 20 (14-36) U/L ALT 12 (6-35) U/L Alkaline Phosphatase 52 (38-126) U/L Total Protein 7.0 (6.3-8.2) g/dL Albumin 3.3 L (3.5-5.1) g/dL All other labs normal. Imaging Additional studies: ITS Impressions Venous Doppler Study 07/29/25 07:10 IMPRESSION: 1. No DVT left upper extremity.
--- NOTE | 2025-07-29 11:09 | P.PN_ITS ---
Subjective Date/time seen: 07/29/25 11:09 Interval history: consult note initially placed for plastic surgery as well as general surgery by ER prior to admission, but after discusion with hospitalist today it was noted general surgery was managing patient and plastic consult canceled at this time. will reconsult if needed. Objective Data Vital Signs Vital Signs: Vital Signs - 24 hr 07/28/25 20:55 07/29/25 00:15 07/29/25 00:30 Temperature 37.2 C Pulse Rate 95 64 Respiratory Rate 20 12 16 Blood Pressure 121/60 131/83 141/91 H Pulse Oximetry 100 100 94 07/29/25 01:01 07/29/25 02:30 07/29/25 04:49 Temperature 38.4 C H Pulse Rate 98 102 H Respiratory Rate 18 15 Blood Pressure 134/89 112/85 Pulse Oximetry 100 99 07/29/25 04:54 07/29/25 05:00 07/29/25 05:01 Temperature Pulse Rate 101 H 105 H 105 H Respiratory Rate 14 19 17 Blood Pressure 145/100 H 149/93 H Pulse Oximetry 100 100 100 07/29/25 05:03 07/29/25 05:15 07/29/25 05:16 Temperature 38.4 C H Pulse Rate 105 H 106 H Respiratory Rate 16 12 Blood Pressure 148/87 H Pulse Oximetry 100 100 07/29/25 05:30 07/29/25 05:31 07/29/25 05:45 Temperature Pulse Rate 101 H 101 H 107 H Respiratory Rate 13 13 25 H Blood Pressure 119/67 Pulse Oximetry 100 100 100 07/29/25 05:46 07/29/25 06:44 Temperature 36.9 C 36.9 C Pulse Rate 105 H Respiratory Rate Blood Pressure 127/70 Pulse Oximetry 100 Intake/Output Intake/Output: Intake & Output 07/26/25 07/27/25 07/28/25 07/29/25 23:59 23:59 23:59 23:59 Intake Total 2400 Balance 2400 Meds/Results Medications: Active Medications Generic Name Dose Route Start Last Admin Trade Name Freq PRN Reason Stop Dose Admin Hydromorphone HCl 0.5 mg 07/29/25 03:18 Hydromorphone Hcl Inj (*Crx) 1 Mg/Ml Syr IV PUSH Q4H PRN Pain Rated 7-10 Vancomycin HCl 1,250 mg in 250 mls @ 166.667 mls/hr 07/29/25 14:00 Vancomycin 1,250 Mg/Ns 250 Ml IVPB Q12H JAD Sodium Chloride 1,000 mls @ 125 mls/hr 07/29/25 03:20 07/29/25 03:54 Normal Saline Iv IV CONT 125 mls/hr .Q8H JAD Administration Radiology Results: ITS Impressions Venous Doppler Study 07/29/25 07:10 IMPRESSION: 1. No DVT left upper extremity. Labs Labs: Laboratory Results - last 24 hr 07/29/25 07/29/25 01:20 01:21 WBC 11.8 H RBC 3.68 L Hgb 7.3 L D Hct 25.5 L MCV 69.3 L MCH 19.8 L MCHC 28.6 L RDW 16.6 H Plt Count 273 MPV 8.7 Immature Gran % (Auto) 0.3 Neut % (Auto) 63.0 Lymph % (Auto) 25.6 [place] % (Auto) 9.0 H Eos % (Auto) 1.7 Baso % (Auto) 0.4 Lymph # (Auto) 3.02 [place] # (Auto) 1.1 H Eos # (Auto) 0.2 Baso # (Auto) 0.1 Abs Immat Gran (auto) 0.04 H Absolute Neuts (auto) 7.4 H Absolute Nucleated RBC 0.000 Band Neutrophils % Not Reportable Nucleated RBC % 0.0 Platelet Estimate Adequate Hypochromasia 1+ Microcytosis 1+ Schistocytes None seen PT 16.7 H INR 1.4 APTT 35.1 Sodium 135 L Potassium 3.7 Chloride 106 Carbon Dioxide 25 Anion Gap 4 BUN 12 Creatinine 0.78 Estim Creat Clear Calc 80 Estimated GFR > 60 Glucose 98 Lactic Acid 0.6 L Calcium 8.3 L Iron 24 L TIBC 371 % Saturation 6 L Ferritin 9.21 Total Bilirubin 0.3 AST 20 ALT 12 Alkaline Phosphatase 52 C-Reactive Protein 5.6 H Total Protein 7.0 Albumin 3.3 L
[2025-07-29] MEDS: VANCOMYCIN 1,250 MG/NS 250 ML 1,250 MG/250 ML BAG 166.67 MG IVPB (14:50)
[2025-07-29 15:29] LABS: Pregnancy On Board Control Positive
[2025-07-29 15:55] LABS: Cannabinoid Screen Urine Negative (Negative)
[2025-07-29] MEDS: BUPRENORPHINE HCL (*CRX) 2 MG SUBLINGUAL TABLET 4 MG SUBLINGUAL (17:49)
--- NOTE | 2025-07-29 18:28 | PC.NURSE ---
This RN called off of lunch as pt states she wants to leave AMA, approx 1440. RN to bedside encouraging pt to stay. Abx started. Call to provider to request additional meds for withdrawal. Provider ordered additional meds and ok'ed a dose now for dilaudid. Pt agreeable to stay. Approx 1630, pt again very anxious and states she's withdrawing from her xanax, fentanyl, and crack, requesting if there's anyway to get suboxone and methadone. Gave clonidine PO. Still Call to Suzanne, who had left already. Call to Judy who reviewed pt chart; discussed COWS score and started on suboxone 4 scheduled Q8HR sublingual. Pt thankful for assistance.
[2025-07-29] MEDS: MELATONIN 5 MG TABLET PO (20:38)
[2025-07-30] MEDS: VANCOMYCIN 1,250 MG/NS 250 ML 1,250 MG/250 ML BAG 166.67 MG IVPB (01:35)
[2025-07-30] MEDS: BUPRENORPHINE HCL (*CRX) 2 MG SUBLINGUAL TABLET 4 MG SUBLINGUAL ×3 (01:36→18:31)
[2025-07-30] MEDS: HYDROcodone/acetaminophen (*CRX) 5-325 MG TABLET 1 TAB PO (05:26)
[2025-07-30 06:00] VITALS: BP 133/86; PULSE 82; RESP 18; TEMP 36.9; O2SAT 100
[2025-07-30 06:26] LABS: Hematocrit 28.5 % (37.0-47.0); Hemoglobin 8.1 g/dL (12.0-15.0); Immature Granulocyte Percent A 0.6 % (0-0.5); Lymphocytes Absolute Auto 2.70 K/mm3 (0.9-3.2); Mean Corpuscular HGB Conc 28.4 g/dl (32-36); Mean Corpuscular Hemoglobin 20.0 pg (26-34); Mean Corpuscular Volume 70.4 fl (80-100); Nucleated Red Blood Cells Absolute Auto 0.000 K/mm3 (0.0-0.012); Nucleated Red Blood Cells Perc 0.0 % (0.0-0.2); Platelet Count Result 357 k/mm3 (150-375); Red Blood Count 4.05 M/mm3 (4.2-5.4); White Blood Count 14.3 K/mm3 (4.5-10.0)
[2025-07-30 06:55] LABS: Alanine Aminotransferase 13 U/L (6-35); Albumin Level 3.4 g/dL (3.5-5.1); Alkaline Phosphatase 52 U/L (38-126); Anion Gap 9 mmol/L (4-12); Aspartate Amino Transferase 22 U/L (14-36); Bilirubin,Total 0.3 mg/dL (0.2-1.3); Blood Urea Nitrogen 7 mg/dL (7-17); CRP 3.1 mg/dL (<1.0); Calcium 8.8 mg/dL (8.4-10.2); Carbon Dioxide 22 mmol/L (22-30); Chloride 111 mmol/L (98-107); Estimated CRCL calculation 95 ml/min; Estimated Glomerular Filt Rate > 60; Glucose 104 mg/dL (65-110); Potassium 3.4 mmol/L (3.4-5.0); Sodium 142 mmol/L (137-145); Total Protein 7.4 g/dL (6.3-8.2)
[2025-07-30 07:24] LABS: Anisocytosis 1+; Burr Cells 1+; Hypochromasia 1+; Microcytosis 1+ (NORMAL); Ovalocytes Occasional; Schistocytes None Seen; Target Cells Occasional
--- NOTE | 2025-07-30 08:04 | P.PNIM_ITS ---
Assessment and Plan Assessment and Plan (1) Sepsis: Code(s): A41.9 - Sepsis, unspecified organism Status: Acute Assessment and Plan: * criteria met with T max 101.2, tachycardia, tachypnea, leukocytosis * LA WNL, BP stable * source: L forearm cellulitis * continue IV vancomycin * follow-up blood cultures - pending * improving today (2) Cellulitis of forearm, left: Code(s): L03.114 - Cellulitis of left upper limb Status: Deleted Assessment and Plan: * IV drug user x 15 years * sepsis as above * XR left forearm: metallic foreign body * Venous Doppler: negative for DVT * continue IV vancomycin * discussed with hand surgery, Dr. Pizarro, over the phone - general surgery comfortable managing for now. If CT shows concern for deep infection, will re- consult. * general surgery consulted - recommended to continue IV abx. Obtain CT LUE to evaluate for deep infection. * CT Upper Extremity: Extensive infiltrative/edematous changes throughout the the forearm wrist and hand most severe in the wrist and hand region where there are also small peripherally enhancing fluid collections concerning for early developing abscess formation. See detailed comments above. If osteomyelitis is a clinical concern, correlation with contrast-enhanced MRI may provide additional beneficial information. * follow-up blood cultures * Trend CBC and inflammatory markers * Dr. Pizarro of plastic surgery reconsulted as cellulitis more localized in hand/wrist - recommend warm compresses TID, elevating limb, and consulting ID for more directed abx therapy * Infectious disease consulted - recommendations pending (3) Retained foreign body of forearm: Code(s): M79.5 - Residual foreign body in soft tissue Status: Acute Assessment and Plan: * general surgery consulted - no plans to remove foreign body at this time. Management of infection as above. (4) Opiate withdrawal: Code(s): F11.93 - Opioid use, unspecified with withdrawal Status: Acute Assessment and Plan: * p.r.n. hydroxyzine, clonidine, Bentyl (5) Anemia: Code(s): D64.9 - Anemia, unspecified Status: Acute Assessment and Plan: * Hgb 7.3, MCV 69. T sat low and ferritin low normal * denies signs of bleeding. No longer has menstrual periods. * RUQ US to assess for cirrhosis given history of untreated hep C * Status post cholecystectomy. Otherwise unremarkable right upper quadrant ultrasound.. * start iron supplement * consider hematology consult * 07/30: Hgb 7.3 -> 8.1 (6) History of intravenous drug use: Code(s): Z87.898 - Personal history of other specified conditions Status: Acute Assessment and Plan: * over 15 years of IV fentanyl and cocaine use. * UDS: (+) for Cocaine * cessation advised. Patient possibly interested in rehab. Care coordination consulted. * continue PRN opiates for pain and PRN medications for symptoms of opiate withdrawal Plan Code status: full code DVT prophylaxis: ambulation Dispo: TBD pending clinical course Subjective Date/time seen: 07/30/25 08:04 Interval history: 35 yo female with PMH of IVDU who presented with L forearm swelling and retained foreign body. 07/30/2025 Patient sitting comfortably in bed at time of exam. Plastic surgery reconsulted as CT of upper extremity suggestive of early abscess formation. Dr. Pizarro recommends warm compresses to hand TID, elevated limb, consult ID for abx coverage but would recommend adding zosyn empircally for gram (-). General surgery to sign off at this time as infection more localized to wrist/hand. Review of Systems Review of Systems: All systems reviewed & are unremarkable except as noted in HPI and below Exam Narrative: General: NAD, chronically ill-appearing Eyes: EOMI ENT: neck supple Cardiovascular: Regular rate and rhythm Respiratory: Clear to auscultation, respirations even and unlabored on RA Gastrointestinal: Soft, non tender Genitourinary: no suprapubic tenderness Musculoskeletal: 1-2+ pitting edema of LUE including hand, limited ROM of LUE due to edema. L forearm and hand tender to palpation Skin: warm, dry, no erythema of LUE, track llanes BUEs Neuro: Alert. Psych: Mood appropriate Objective Data Vital Signs Vital Signs: Vital Signs - 24 hr 07/29/25 14:00 07/29/25 22:00 07/30/25 06:00 Temperature 98.3 F 98.0 F 98.5 F Pulse Rate 88 79 82 Respiratory Rate 20 20 18 Blood Pressure 136/80 140/86 133/86 Pulse Oximetry 100 100 100 Intake/Output Intake/Output: Intake & Output 07/27/25 07/28/25 07/29/25 07/30/25 23:59 23:59 23:59 23:59 Intake Total 3130 550 Output Total 1999 Balance 1130 550 Meds/Results Medications: Active Medications Generic Name Dose Route Start Last Admin Trade Name Freq PRN Reason Stop Dose Admin Hydrocodone Bitart/Acetaminophen 1 tab 07/29/25 11:57 07/30/25 05:26 Hydrocodone/Acetaminophen (*Crx) 5-325 Mg Tablet PO 1 tab Q6H PRN Administration Pain Rated 4-6 Buprenorphine HCl 4 mg 07/29/25 18:00 07/30/25 01:36 Buprenorphine Hcl (*Crx) 2 Mg Sublingual Tablet SUBLINGUAL 4 mg Q8H JAD Administration Clonidine HCl 0.1 mg 07/29/25 14:54 07/29/25 17:13 Clonidine Hcl 0.1 Mg Tablet PO 0.1 mg Q12HR PRN Administration Agitation Dicyclomine HCl 10 mg 07/29/25 14:56 Dicyclomine Hcl 10 Mg Capsule PO QID PRN Abdominal Cramping Ferrous Sulfate 325 mg 07/30/25 09:00 Ferrous Sulfate 325 Mg Tablet PO DAILY JAD Hydromorphone HCl 0.5 mg 07/29/25 14:56 07/29/25 15:25 Hydromorphone Hcl Inj (*Crx) 1 Mg/Ml Syr IV PUSH 0.5 mg Q3H PRN Administration Pain Rated 7-10 Hydroxyzine HCl 25 mg 07/29/25 14:54 07/29/25 21:51 Hydroxyzine Hcl 25 Mg Tablet PO 25 mg Q6H PRN Administration Anxiety Vancomycin HCl 1,250 mg in 250 mls @ 166.667 mls/hr 07/29/25 14:00 07/30/25 01:35 Vancomycin 1,250 Mg/Ns 250 Ml IVPB 166.67 mls/hr Q12H JAD Administration Radiology Results: ITS Impressions Venous Doppler Study 07/29/25 07:10 IMPRESSION: 1. No DVT left upper extremity. Upper Extremity CT 07/29/25 12:42 IMPRESSION: Extensive infiltrative/edematous changes throughout the the forearm wrist and hand most severe in the wrist and hand region where there are also small peripherally enhancing fluid collections concerning for early developing abscess formation. See detailed comments above. If osteomyelitis is a clinical concern, correlation with contrast-enhanced MRI may provide additional beneficial information. Abdomen Ultrasound 07/29/25 14:11 IMPRESSION: 1. Status post cholecystectomy. Otherwise unremarkable right upper quadrant ultrasound.. Labs Labs: Laboratory Results - last 24 hr 07/29/25 07/29/25 07/30/25 01:20 15:12 05:38 WBC 14.3 H RBC 4.05 L Hgb 8.1 L Hct 28.5 L MCV 70.4 L MCH 20.0 L MCHC 28.4 L RDW 16.8 H Plt Count 357 MPV 9.6 Immature Gran % (Auto) 0.6 H Neut % (Auto) 73.1 Lymph % (Auto) 18.9 [place] % (Auto) 7.0 Eos % (Auto) 0.1 Baso % (Auto) 0.3 Lymph # (Auto) 2.70 [place] # (Auto) 1.0 H Eos # (Auto) 0.0 Baso # (Auto) 0.0 Abs Immat Gran (auto) 0.08 H Absolute Neuts (auto) 10.5 H Absolute Nucleated RBC 0.000 Band Neutrophils % Not Reportable Nucleated RBC % 0.0 Platelet Estimate Adequate Hypochromasia 1+ Anisocytosis 1+ Microcytosis 1+ Target Cells Occasional Ovalocytes Occasional [place] Cells 1+ Schistocytes None seen Sodium 142 Potassium 3.4 Chloride 111 H Carbon Dioxide 22 Anion Gap 9 BUN 7 D Creatinine 0.65 L Estim Creat Clear Calc 95 Estimated GFR > 60 Glucose 104 Calcium 8.8 Iron 24 L TIBC 371 % Saturation 6 L Ferritin 9.21 Total Bilirubin 0.3 AST 22 ALT 13 Alkaline Phosphatase 52 C-Reactive Protein 3.1 H Total Protein 7.4 Albumin 3.4 L Urine Test Negative Urine Opiates Screen Negative Urine Methadone Screen Negative Ur Barbiturates Screen Negative Ur Phencyclidine Scrn Negative Ur Amphetamine Screen Negative U Benzodiazepines Scrn Negative Urine Cocaine Screen Positive A U Cannabinoids Screen Negative Quality VTE Prophylaxis VTE prophylaxis: mechanical ordered
[2025-07-30] MEDS: FERROUS SULFATE 325 MG TABLET PO (10:02)
--- NOTE | 2025-07-30 10:48 | P.CONS_ITS ---
Assessment and Plan Assessment and plan (1) Cellulitis of left upper extremity: Code(s): L03.114 - Cellulitis of left upper limb Status: Acute Assessment and Plan: 35yo female with left hand/wrist cellulitis. also note retained needle in proximal forearm but asymptomatic and noncontributory ct images reviewed and agree with report wbc noted to be elevated since admission discussed impression and Dx and no clear indication for surgical intervention at this time given exam and pt reports of improvement discussed conserative treatment recs at this time. Plan: 1) warm compresses to dorsum hand TID 2) elevation 3) abx per ID - consider adding zosyn empirically for gram negative coverage til cultures resulted 4)please reconsult if symptoms deteriorate HPI Data of Consult Date/Time: 07/30/25 10:48 Requesting Physician: Garcia Rico MD Primary Care Provider: MEDICAL PROFESSIONALS PHYSICIAN Consult Narrative Narrative: Veronica Mistry is a 35 year old female admitted through [facility] for left arm cellulitis initially seen by general surgery who ordered a CT scan and given CT results plastics consulted for further eval and mgmt pt. seen and examined at bedside. pt detoxing but awake and oriented. patient reports interval improvement in left hand pain since admission. no other concerns. patient notes reccently she has been injecting around base of thumb and wrist. PMFSH Past Medical History Medical History Hepatitis C Surgical History Surgical History History of myringotomy Family History Family History Father Depression Anxiety Mother Depression Anxiety Sibling Depression Anxiety Sibling Depression Anxiety Social History Social History Smoking status: Current every day smoker Tobacco type: cigarettes Alcohol intake: never Substance use: current Substance use type: crack/cocaine and opiates Other substance usage details: methamphetamine, fentanyl, polysubstance use Last use: 09/11/20 Lack of Transportation: No Lack of Food: Never True Current Housing: I Have Housing Concerned About Future Housing: No Difficulty Paying Gas/Electric Bills: No Difficulty Paying for Meds: No Currently Unemployed: YES Education: High School Diploma/GED Difficulty w/ Childcare or Family Care: No Spiritual care concerns: No Meds Home Medications and Allergies Home Medications ?Medication ?Instructions ?Recorded ?Confirmed ?Type No Home Medications 07/29/25 07/29/25 H istory Allergies Allergy/AdvReac Type Severity Reaction Status Date / Time sulfamethoxazole Allergy Unknown Difficulty Verified 07/29/25 06:39 Breathing trimethoprim Allergy Unknown Difficulty Verified 07/29/25 06:39 Breathing Vital Signs Vital Signs - 24 hr 07/29/25 14:00 07/29/25 22:00 07/30/25 06:00 Temperature 36.8 C 36.7 C 36.9 C Pulse Rate 88 79 82 Respiratory Rate 20 20 18 Blood Pressure 136/80 140/86 133/86 Pulse Oximetry 100 100 100 Exam 2 Narrative: Gen: left dorsal hand diffuse edema. nontender. no appreciable collection or fluctuance. minimal hyperemia. no erythema. mild warmth. small puncture wounds around volar radial wrist. ROM: stiff from edema but moves all digits and wrist spontaneously. no pain on passive stretch or flexion. Vascular: Warm and well perfused Sensation: Intact to light touch Results Labs 07/30/25 05:38 07/30/25 05:38 Labs: Short CBC 07/30/25 Range/Units 05:38 WBC 14.3 H (4.5-10.0) K/mm3 Hgb 8.1 L (12.0-15.0) g/dL Hct 28.5 L (37.0-47.0) % Plt Count 357 (150-375) k/mm3 BMP 07/30/25 05:38 Sodium 142 Potassium 3.4 Chloride 111 H Carbon Dioxide 22 BUN 7 D Creatinine 0.65 L Glucose 104 Calcium 8.8 Liver Function 07/30/25 Range/Units 05:38 Total Bilirubin 0.3 (0.2-1.3) mg/dL AST 22 (14-36) U/L ALT 13 (6-35) U/L Alkaline Phosphatase 52 (38-126) U/L Albumin 3.4 L (3.5-5.1) g/dL
--- NOTE | 2025-07-30 12:40 | PM.PNGS ---
Progress Note: A&P Assessment and Plan (1) Retained foreign body of forearm: Code(s): M79.5 - Residual foreign body in soft tissue Status: Acute Assessment and Plan: Would not recommend removing the foreign body at this time as there is no overlying infection and her issues are more localized to her wrist and hand. We will sign off at this time. Call with any future surgical questions or concerns. (2) Cellulitis of left upper extremity: Code(s): L03.114 - Cellulitis of left upper limb Status: Acute Assessment and Plan: CT scan of the left forearm and hand showed edematous changes in the forearm with more severe edema of the wrist/hand, and small peripherally enhancing fluid collections in the wrist/hand concerning for early developing abscess. Would recommend Plastic Surgery consultation as her problem seems to be more localized to the hand and wrist with the above CT findings, and we do not manage hand infections/abscesses. Swelling and redness improving with IV antibiotics. (3) History of intravenous drug use: Code(s): Z87.898 - Personal history of other specified conditions Status: Acute Plan I have discussed the patient's case, recommendations, and treatment plan with Dr. Roper. Subjective Subjective Date/Time Seen: 07/30/25 12:40 Patient reports: no new complaints, feels better and pain is less Interval history: Less pain in her L hand and fingers. 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 Swelling is better. still denies any paresthesias. Exam Narrative: Left forearm and hand swelling improved with erythema in the hand significantly improved as well. There is still no redness or swelling in the forearm over the area where the foreign object is located on x-ray. She has better ROM with cad cam programmer and is able to wiggle fingers. Good ROM of L wrist. Strong radial pulse and hand is warm. Const: General: comfortable and no acute distress Objective Data Vital Signs Vital Signs: Vital Signs - 24 hr 07/29/25 14:00 07/29/25 22:00 07/30/25 06:00 Temperature 98.3 F 98.0 F 98.5 F Pulse Rate 88 79 82 Respiratory Rate 20 20 18 Blood Pressure 136/80 140/86 133/86 Pulse Oximetry 100 100 100 Intake/Output Intake/Output: Intake & Output 07/27/25 07/28/25 07/29/25 07/30/25 23:59 23:59 23:59 23:59 Intake Total 3130 790 Output Total 1999 Balance 1130 790 Meds/Results Medications: Active Medications Generic Name Dose Route Start Last Admin Trade Name Freq PRN Reason Stop Dose Admin Hydrocodone Bitart/Acetaminophen 1 tab 07/29/25 11:57 07/30/25 05:26 Hydrocodone/Acetaminophen (*Crx) 5-325 Mg Tablet PO 1 tab Q6H PRN Administration Pain Rated 4-6 Buprenorphine HCl 4 mg 07/29/25 18:00 07/30/25 10:01 Buprenorphine Hcl (*Crx) 2 Mg Sublingual Tablet SUBLINGUAL 4 mg Q8H JAD Administration Clonidine HCl 0.1 mg 07/29/25 14:54 07/29/25 17:13 Clonidine Hcl 0.1 Mg Tablet PO 0.1 mg Q12HR PRN Administration Agitation Dicyclomine HCl 10 mg 07/29/25 14:56 Dicyclomine Hcl 10 Mg Capsule PO QID PRN Abdominal Cramping Ferrous Sulfate 325 mg 07/30/25 09:00 07/30/25 10:02 Ferrous Sulfate 325 Mg Tablet PO 325 mg DAILY JAD Administration Hydromorphone HCl 0.5 mg 07/29/25 14:56 07/29/25 15:25 Hydromorphone Hcl Inj (*Crx) 1 Mg/Ml Syr IV PUSH 0.5 mg Q3H PRN Administration Pain Rated 7-10 Hydroxyzine HCl 25 mg 07/29/25 14:54 07/29/25 21:51 Hydroxyzine Hcl 25 Mg Tablet PO 25 mg Q6H PRN Administration Anxiety Vancomycin HCl 1,250 mg in 250 mls @ 166.667 mls/hr 07/29/25 14:00 07/30/25 01:35 Vancomycin 1,250 Mg/Ns 250 Ml IVPB 166.67 mls/hr Q12H JAD Administration Cefepime HCl 2 gm/ Sodium 50 mls @ 100 mls/hr 07/30/25 12:00 Chloride IVPB Q8H [facility] Radiology Results: ITS Impressions Venous Doppler Study 07/29/25 07:10 IMPRESSION: 1. No DVT left upper extremity. Upper Extremity CT 07/29/25 12:42 IMPRESSION: Extensive infiltrative/edematous changes throughout the the forearm wrist and hand most severe in the wrist and hand region where there are also small peripherally enhancing fluid collections concerning for early developing abscess formation. See detailed comments above. If osteomyelitis is a clinical concern, correlation with contrast-enhanced MRI may provide additional beneficial information. Abdomen Ultrasound 07/29/25 14:11 IMPRESSION: 1. Status post cholecystectomy. Otherwise unremarkable right upper quadrant ultrasound.. Labs Labs: Laboratory Results - last 24 hr 07/29/25 07/30/25 15:12 05:38 WBC 14.3 H RBC 4.05 L Hgb 8.1 L Hct 28.5 L MCV 70.4 L MCH 20.0 L MCHC 28.4 L RDW 16.8 H Plt Count 357 MPV 9.6 Immature Gran % (Auto) 0.6 H Neut % (Auto) 73.1 Lymph % (Auto) 18.9 [place] % (Auto) 7.0 Eos % (Auto) 0.1 Baso % (Auto) 0.3 Lymph # (Auto) 2.70 [place] # (Auto) 1.0 H Eos # (Auto) 0.0 Baso # (Auto) 0.0 Abs Immat Gran (auto) 0.08 H Absolute Neuts (auto) 10.5 H Absolute Nucleated RBC 0.000 Band Neutrophils % Not Reportable Nucleated RBC % 0.0 Platelet Estimate Adequate Hypochromasia 1+ Anisocytosis 1+ Microcytosis 1+ Target Cells Occasional Ovalocytes Occasional [place] Cells 1+ Schistocytes None seen Sodium 142 Potassium 3.4 Chloride 111 H Carbon Dioxide 22 Anion Gap 9 BUN 7 D Creatinine 0.65 L Estim Creat Clear Calc 95 Estimated GFR > 60 Glucose 104 Calcium 8.8 Total Bilirubin 0.3 AST 22 ALT 13 Alkaline Phosphatase 52 C-Reactive Protein 3.1 H Total Protein 7.4 Albumin 3.4 L Urine Test Negative Urine Opiates Screen Negative Urine Methadone Screen Negative Ur Barbiturates Screen Negative Ur Phencyclidine Scrn Negative Ur Amphetamine Screen Negative U Benzodiazepines Scrn Negative Urine Cocaine Screen Positive A U Cannabinoids Screen Negative
[2025-07-30 14:00] VITALS: BP 143/90; PULSE 80; RESP 16; TEMP 36.8; O2SAT 100
[2025-07-30] MEDS: CEFEPIME 2 GM in SODIUM CHLORIDE 0.9% IV 50 ML 100 ML IVPB ×2 (14:50→21:47)
--- NOTE | 2025-07-30 15:27 | PC.NURSE ---
This RN was present at bedside 07/29/25 with Connie during initial consult/assessment. Pt socks were removed. A plastic bag containing three pills fell out of right sock. Another pill fell out of her left sock. Pills were placed in biohazard bag and given to Ed, pharmacy. Ed stated he would hand them over to security. Charge made aware. Pt went down to CT scan 07/29/25 via stretcher and transport staff. Pt returned to room with cares resuming. Today, this RN was told by the transport staff that the pt had a needle fall out of her bed yesterday down in the CT room. This RN notified extension service specialist in charge. Security called to do a physical search of pt belongings and pt self. Miscellaneous items, including a crack pipe, used pill bags were confiscated by security. Pt expressed concern over the police being called. She stated that she would leave if we were going to call them. This RN stated that we just wanted to keep her and ourselves safe. Security stated the same. Pt stated, you guys oughtta check your patients when they came in. I shot up with fentanyl (with the syringe that was downstairs) and took two bangers in the ER. That's why I like [facility] because I know they don't check me and my stuff here. I cant do that shit at [facility]. Pt stated she would stay for right now. Alarm on, pt resting comfortably with call light nearby.
--- NOTE | 2025-07-30 17:56 | WPDIDCN ---
Assessment and Plan Assessment and plan (1) Cellulitis of left upper extremity: Code(s): L03.114 - Cellulitis of left upper limb Status: Acute Plan ASSESSMENT: 1. left hand edema after injection of fentanyl; possible abscesses 2. polysubstance abuse including IVDU 3. Hep C RECOMMENDATIONS: -continue vanco -I added cefepime -f/u on blood cxs d/w pharmacy staff Pt was seen via video telehealth consultation with the assistance of staff. Chart, data and patient info reviewed. Patient was located at [facility] while I was in my [place] office. Pt gave consent. HPI Data of Consult Date/Time: 07/30/25 17:56 Requesting Physician: Garcia Rico MD Primary Care Provider: PIPE FITTINGS MOLDER PHYSICIAN Consult Narrative Reason for consult: abx mgmt Narrative: Veronica Mistry is a 35 year old female with pmhx/o IVDU, presented with pain with swelling of left hand after injecting fentanyl into wrist area. CT with edema and fluid collections--??abscesses. Also with foreign body in the left forearm (needle) but asymptomatic. Also has hx/o Hep C. On vanco. I spoke with nursing staff and added cefepime. Pt licks needle prior to injection and also uses water for fentanyl injection. [facility] Past Medical History Medical History Hepatitis C Surgical History Surgical History History of myringotomy Family History Family History Father Depression Anxiety Mother Depression Anxiety Sibling Depression Anxiety Sibling Depression Anxiety Social History Social History Smoking status: Current every day smoker Tobacco type: cigarettes Alcohol intake: never Substance use: current Substance use type: crack/cocaine and opiates Other substance usage details: methamphetamine, fentanyl, polysubstance use Last use: 09/11/20 Lack of Transportation: No Lack of Food: Never True Current Housing: I Have Housing Concerned About Future Housing: No Difficulty Paying Gas/Electric Bills: No Difficulty Paying for Meds: No Currently Unemployed: YES Education: High School Diploma/GED Difficulty w/ Childcare or Family Care: No Spiritual care concerns: No Meds Home Medications and Allergies Home Medications ?Medication ?Instructions ?Recorded ?Confirmed ?Type No Home Medications 07/29/25 07/29/25 History Allergies Allergy/AdvReac Type Severity Reaction Status Date / Time sulfamethoxazole Allergy Unknown Difficulty Verified 07/29/25 06:39 Breathing trimethoprim Allergy Unknown Difficulty Verified 07/29/25 06:39 Breathing Vital Signs Vital Signs - 24 hr 07/29/25 22:00 07/30/25 06:00 07/30/25 14:00 Temperature 98.0 F 98.5 F 98.3 F Pulse Rate 79 82 80 Respiratory Rate 20 18 16 Blood Pressure 140/86 133/86 143/90 H Pulse Oximetry 100 100 100 Results Labs 07/30/25 05:38 07/30/25 05:38 Labs: Short CBC 07/30/25 Range/Units 05:38 WBC 14.3 H (4.5-10.0) K/mm3 Hgb 8.1 L (12.0-15.0) g/dL Hct 28.5 L (37.0-47.0) % Plt Count 357 (150-375) k/mm3 [facility] 07/30/25 05:38 Sodium 142 Potassium 3.4 Chloride 111 H Carbon Dioxide 22 BUN 7 D Creatinine 0.65 L Glucose 104 Calcium 8.8 Liver Function 07/30/25 Range/Units 05:38 Total Bilirubin 0.3 (0.2-1.3) mg/dL AST 22 (14-36) U/L ALT 13 (6-35) U/L Alkaline Phosphatase 52 (38-126) U/L Albumin 3.4 L (3.5-5.1) g/dL
[2025-07-30] MEDS: VANCOMYCIN 2,000 MG/NS 500 ML 2,000 MG/500 ML BAG 250 MG IVPB (18:31)
[2025-07-30] MEDS: KETOROLAC 30 MG/ML VIAL (*BKC) IV PUSH (21:50)
[2025-07-30 22:00] VITALS: BP 144/93; PULSE 81; RESP 20; TEMP 36.8; O2SAT 100
--- NOTE | 2025-07-30 22:45 | PC.NURSE ---
Called into Pt's room as she stated that she wanted to leave. Pt. states that she is tired of just laying here and wants to go home. Discussed with Pt. that she has been getting IV antibiotics (Cefepime & Vancomycin) to help with her cellulitis. Pt. insisting that she wants to leave and that she doesn't want to wait anymore, 'I am leaving now.' Trista Sanchez NP notified and came to speak with Pt. and discuss risk of leaving AMA along with benefits of staying in the hospital. Pt. continuing to insist on leaving. IV removed and AMA form signed.
--- NOTE | 2025-07-30 22:53 | PM.EVENT ---
Event Note Event Note Event Note: This is a 35 year old female patient who has a hx of iv drug use and came to the hospital due to an infection of her left upper extremity . infectious disease has seen the patient and recommended another abx. to be added to her regimen. The patient stated that she has been here to long and wanted to leave ama. i spoke with her to discuss signing out against medical advice as it could cause her imminent decline in her health and even if she left now. awaiting blood cultures. I do not feel comfortable with discharging her at this point. she stated that she wanted to sign out against medical advice anyway . no rx were given
--- NOTE | 2025-07-31 06:59 | P.DS_ITS ---
DS: Admitting Diagnosis Discharge Date 07/30/25 Admitting Diagnosis Sepsis, Cellulitis of forearm, left DS: Discharge Diagnosis Discharge Diagnosis (1) Sepsis: Code(s): A41.9 - Sepsis, unspecified organism Status: Acute (2) Cellulitis of forearm, left: Code(s): L03.114 - Cellulitis of left upper limb Status: Deleted (3) Retained foreign body of forearm: Code(s): M79.5 - Residual foreign body in soft tissue Status: Acute (4) Opiate withdrawal: Code(s): F11.93 - Opioid use, unspecified with withdrawal Status: Acute (5) Anemia: Code(s): D64.9 - Anemia, unspecified Status: Acute (6) History of intravenous drug use: Code(s): Z87.898 - Personal history of other specified conditions Status: Acute DS: Summary Hospital Course Reason for hospitalization: forearm swelling Hospital Course: This is a 35-year-old female with a history of intravenous drug use who presented with left upper extremity cellulitis and was admitted with sepsis. On admission, she was found to have leukocytosis, fever, and tachycardia, with imaging demonstrating extensive edema of the left forearm, wrist, and hand, as well as small fluid collections concerning for early abscess formation. A retained needle fragment was identified in the proximal left forearm but was deemed asymptomatic and not contributing to the current infection. She was started on IV vancomycin, and Infectious Disease was consulted, subsequently recommending the addition of cefepime for broader antimicrobial coverage while awaiting blood culture results. General Surgery and Plastic Surgery evaluated the patient and recommended continued conservative management with IV antibiotics, elevation, and warm compresses, with no surgical intervention indicated at that time. During hospitalization, the patient demonstrated some clinical improvement in pain and swelling but developed symptoms consistent with opioid withdrawal, which were managed medically. Despite counseling regarding the seriousness of her infection, the need for continued IV antibiotics, pending blood cultures, and the risks of worsening infection, limb loss, sepsis, or , the patient expressed a desire to leave the hospital against medical advice. The risks of leaving AMA were discussed in detail, and the patient verbalized understanding but elected to leave anyway. Given her decision to leave against medical advice and the incomplete treatment course, no discharge prescriptions were provided. Time Spent with Patient Time attestation: Total time spent providing and/or coordinating discharge services: 30 Exam Narrative: General: NAD, chronically ill-appearing Eyes: EOMI ENT: neck supple Cardiovascular: Regular rate and rhythm Respiratory: Clear to auscultation, respirations even and unlabored on RA Gastrointestinal: Soft, non tender Genitourinary: no suprapubic tenderness Musculoskeletal: 1-2+ pitting edema of LUE including hand, limited ROM of LUE due to edema. L forearm and hand tender to palpation Skin: warm, dry, no erythema of LUE, track llanes BUEs Neuro: Alert. Psych: Mood appropriate DS: Data Data Completed and Pending Labs on day of discharge: Labs from last 24 hours 07/30/25 07/30/25 15:35 05:38 WBC 14.3 H RBC 4.05 L Hgb 8.1 L Hct 28.5 L MCV 70.4 L MCH 20.0 L MCHC 28.4 L RDW 16.8 H Plt Count 357 MPV 9.6 Immature Gran % (Auto) 0.6 H Neut % (Auto) 73.1 Lymph % (Auto) 18.9 [place] % (Auto) 7.0 Eos % (Auto) 0.1 Baso % (Auto) 0.3 Lymph # (Auto) 2.70 [place] # (Auto) 1.0 H Eos # (Auto) 0.0 Baso # (Auto) 0.0 Abs Immat Gran (auto) 0.08 H Absolute Neuts (auto) 10.5 H Absolute Nucleated RBC 0.000 Band Neutrophils % Not Reportable Nucleated RBC % 0.0 Platelet Estimate Adequate Hypochromasia 1+ Anisocytosis 1+ Microcytosis 1+ Target Cells Occasional Ovalocytes Occasional [place] Cells 1+ Schistocytes None seen Vancomycin Trough 7.9 L Discharge Plan Discharge Consulting providers: Jose Francisco Reyes; Suzanne Day Edmund R.; Juana Villanueva Patient Disposition: Left Against Medical Advice Patient Language: Lithuanian Discharge Medications: No Action No Home Medications Date of admission: 07/30/25 10:29 Primary Care Provider: PHYSICIAN,PUNCH OPERATOR Admitting Provider: Garcia Rico Attending physician on admission: Garcia Rico Condition: Stable Quality VTE Prophylaxis VTE prophylaxis: mechanical ordered
== END 2025-07-30 22:50 | disposition left against medical advice (07) | DRG 720 ==
LOC: ANHED 07-29 03:18 → ANH3MEDSUR 07-29 04:32
PROVIDERS: Physician Assistant; Admitting Provider Internal Medicine; Emergency Provider Registered Nurse; Visit Provider Physician Assistant
DX: A41.9 Sepsis, unspecified organism (principal); L03.114 Cellulitis of left upper limb; M79.5 Residual foreign body in soft tissue; D64.9 Anemia, unspecified; B19.20 Unspecified viral hepatitis C without hepatic coma; F15.90 Other stimulant use, unspecified, uncomplicated; F11.90 Opioid use, unspecified, uncomplicated; F14.90 Cocaine use, unspecified, uncomplicated; F17.210 Nicotine dependence, cigarettes, uncomplicated
CPT/HCPCS: 36415; 73090; 73201; 76705; 80053; 80202; 80307; 81025; 82728; 83540; 83550; 83605; 85025; 85610; 85730; 86140; 87040; 93971; 96361; 96365; 96366; 96374; 96375; 96376; 99285; A9270; G0378; G0379; J0692; J1171; J1885; J3373; J7030; Q9967